=== PATIENT | female | born 1960 | race Caucasian/White ===

== ENCOUNTER 2021-06-19 08:22 | Emergency (ER) | payer OTHER, SELFPAY ==
--- NOTE | 2021-06-19 09:30 | ED.EAR ---
HPI - Ear Problem General Chief complaint: Ear Problems Stated complaint: ear pain Time Seen by Provider: 06/19/21 09:13 Source: patient Mode of arrival: ambulatory Limitations: language barrier (Citizen Of [place]-speaking) History of Present Illness MD Complaint: ear pain and other (And sore throat) Location: bilateral Duration: constant Severity: mild Relieving factors: nothing Exacerbating factors: nothing Discharge from ear: no Associated symptoms ear: other (Sore throat) Treatment prior to arrival: none Related Data Home Medications Medication Instructions Recorded Confirmed albuterol sulfate 90 mcg/actuation INHALATION 11/28/20 06/08/21 aerosol inhaler fluoxetine 20 mg capsule 20 mg PO DAILY 11/28/20 06/08/21 food supplemt, lactose-reduced ea PO 11/28/20 06/08/21 0.05 gram-1.5 kcal/mL oral liquid meclizine 25 mg tablet 25 mg PO TID PRN 11/28/20 06/08/21 multivitamin-ferrous 1 tab PO DAILY 11/28/20 06/08/21 fumarate-folic acid 18 mg-400 mcg tablet Previous Rx's Medication Instructions Recorded amlodipine 10 mg tablet 10 mg PO DAILY 90 Days #90 tab 06/08/21 aspirin 81 mg tablet,delayed 81 mg PO DAILY 90 Days #90 tab 06/08/21 release atorvastatin 40 mg tablet 40 mg PO DAILY 90 Days #90 tab 06/08/21 buspirone 10 mg tablet 10 mg PO BID 90 Days #180 tab 06/08/21 cetirizine 10 mg tablet 10 mg PO DAILY #30 tab 06/08/21 lisinopril 40 mg tablet 40 mg PO DAILY 90 Days #90 tab 06/08/21 acetaminophen 500 mg tablet 1,000 mg PO QID PRN #14 tab 06/19/21 (Tylenol Extra Strength) azithromycin 250 mg tablet See Rx Instructions .ROUTE 06/19/21 .COMPLEX #6 tab Allergies Allergy/AdvReac Type Severity Reaction Status Date / Time No Known Allergies Allergy Verified 06/08/21 14:00 Review of Systems Review of Systems: Constitutional : No Weight loss, No Fever, No Chills, No Night Sweats, No Fatigue, No Malaise ENT/Mouth : Positive sore throat/bilateral ear pain, No Hearing loss, No Nasal Congestion, No Sinus Pain, No Hoarseness, No Rhinorrhea, No Swallowing Difficulty Eyes: No Eye Pain, No Swelling, No Redness, No Foreign Body, No Discharge, No Vision Changes Cardiovascular : No Chest Pain, No SOB, No Dyspnea on Exertion, No Orthopnea, No Edema, No Palpitations Respiratory : No Cough, No Sputum, No Wheezing, No Smoke Exposure, No Dyspnea Gastrointestinal : No Nausea, No Vomiting, No Diarrhea, No Constipation, No abdominal Pain, No Hematochezia, No Melena Genitourinary : no irregular bleeding, No Dysuria, No Urinary Frequency, No Hematuria, No Urinary Incontinence, No Urgency, No Flank Pain, No Urinary Flow Changes, No Hesitancy Musculoskeletal : No joint pain, No Myalgias, No Joint Swelling Skin : No Skin Lesions, No rash Neuro : No Weakness, No Numbness, No Paresthesias, No Loss of Consciousness, No Dizziness, No Headache Psych : No Anxiety/Panic, No Depression, No SI/HI/AH/VH, No Social Issues, Heme/Lymph: No Bruising, No Bleeding,No Lymphadenopathy Endocrine : No Polyuria, No Polydipsia, No Temperature Intolerance Yes all other systems are reviewed and are negative [facility] Past Medical History Attestation statement: The following information was validated with the patient. Medical History Asthma High blood pressure History of high cholesterol Surgical History No pertinent past surgical history Social History Social History Housing: Apartment Alcohol intake: never Patient Tobacco Use Status: Never used Tobacco e-Cigarette/Vaping Use: Never Used Second Hand Smoke Exposure: No Advance Directives: No service: No Current occupational status: disabled Cognitive needs: No Hearing needs: No Vision needs: No Physical Exam Vital Signs: Vital Signs: vital signs have been reviewed as normal and appeared to be correct. Blood pressure normal. Heart rate normal. Respiration rate normal. Temperature normal. Oxygen saturation normal. Appearance: Alert. Oriented X3. No acute distress. Head: Normal external exam. Normocephalic. Atraumatic. Eyes: PERRLA. EOMI. Conjunctiva and sclera normal. Eyelids normal. ENT: EAC normal. TM's Normal. Posterior pharynx mildly erythematous with scattered exudate noted. Uvula midline. Moist mucous membranes. No trismus noted. No drooling noted. No muffled voice noted. Neck: Normal inspection. Neck supple. FROM. No adenopathy. Thyroid Normal. No meningeal signs. No neck mass noted. CVS: Normal heart rate and rhythm. Heart sound normal. Pulses normal throughout. No murmurs/rales/gallops. Respiratory: No respiratory distress. Painless inspiration. Breath sounds normal. No wheezes/rales/rhonchi noted. Chest nontender. No accessory muscle usage noted or decreased air movement noted. Abdomen: Soft and nontender. Bowel sounds normal in all 4 quadrants. No distention noted. No organomegaly noted. No visible injury noted. Back: Full range of motion noted. No rashes/lesion/induration/fluctuance or signs of infection noted. Skin: Skin warm and dry. Normal skin color. Normal skin turgor. No rashes/lesions/lacerations noted. Extremities: Extremities exhibit normal range of motion. Extremities nontender. Neuro: Oriented X 3. No motor deficit. No sensory deficit. Reflexes normal. Normal steady gait. No focal neuro deficits noted. Vascular: + radial pulses/+ 2 distal pedal pulses/+2 dorsalis pedis b/l. Normal cap refill. No cyanosis noted to upper extremity nails and lower extremity toes nails. Course Course Course Narrative: 61-year-old female presenting to the ED with complaints of 2 days of sore throat radiating to her bilateral ears worse today. Denies recent travel or sick contacts. On exam patient noted to have pharyngitis. Otherwise tolerating secretions well. Not consistent with pharyngeal abscess/dental abscess/peritonsillar abscess. No trismus/drooling. Will swab for COVID and strep and DC home with antibiotics for possible strep and call her in 2 hours if she has a positive results for COVID will not call if negative patient understands and agrees with this plan along with instructions to follow-up with her primary care provider and to return if any new or worsening symptoms. Patient understands agrees with this plan. [facility] - Ear Medical Records Attestation: I reviewed the patient's medical records. Lab Data Attestation: I reviewed the patient's lab results. Discharge Plan Discharge Clinical Impression: Pharyngitis Patient Disposition: Home, Self-Care Instructions: Pharyngitis (ED) Additional Instructions: Based on your symptoms and history we have sent a COVID-19. Although your RESULT IS PENDING at this time. RESULTS should return within 2-4 hours. At this time you will be contacted with ONLY POSITIVE results. -Please wait until we contact you for your results. At this time you will be okay for discharge. Please plan for self quarantine for up to 14 days. Do not expose yourself to others. You may not go to work. If testing does come back negative you may return to activities as long as you are no longer having any symptoms for at least 3 days. Please continue to follow cold instructions and wash your hands frequently. You may take Tylenol as directed on the bottle for pain or fever. Patient seen in the emergency department on -------- and should be excused from work until negative test results AND until 72 hours without any symptoms AND at least 10 days have passed since symptoms first appeared or since last exposure to COVID-19 positive patient CDC Guidelines for home isolation: - Stay away from others - WEAR A MASK if you are sick AND STAY HOME - Cover your mouth and nose with a tissue when you cough or sneeze. Dispose of tissues in a lined trash can and wash your hands immediately with soap and water for at least 20 seconds. If soap and water are not available, clean hands with alcohol-based hand diesel motor mechanic that contains at least 60% alcohol. - Clean your hands often with soap and water for at least 20 seconds - Avoid touching your eyes, nose and mouth with unwashed hands - Do not share dishes, drinking glasses, cups, eating utensils, towels, or bedding with other people in your home. After using these items, wash them thoroughly with soap and water or put in the president. - Clean high-touch surfaces in your isolation area ( sick room and bathroom) every day; let a caregiver clean and disinfect high-touch surfaces in other areas of the home. Clean the area or item with soap and water or another detergent if it is dirty. Then, use a household disinfectant. - Limit contact with pets and animals: If you must care for a pet, wash your hands before and after interacting with them). Prescriptions: New azithromycin 250 mg tablet See Rx Instructions .ROUTE .COMPLEX Qty: 6 RF: 0 acetaminophen [Tylenol Extra Strength] 500 mg tablet 1,000 mg PO QID PRN (Reason: fever or pain) Qty: 14 RF: 0 No Action Spectravite Ultra Women 18-400 mg-mcg tablet 1 tab PO DAILY RF: 0 albuterol sulfate 90 mcg/actuation HFA aerosol inhaler inhalation RF: 0 meclizine 25 mg tablet 25 mg PO TID PRNRF: 0 fluoxetine 20 mg capsule 20 mg PO DAILY RF: 0 food supplemt, lactose-reduced 0.05-1.5 gram-kcal/mL liquid PO RF: 0 buspirone 10 mg tablet 10 mg PO BID 90 Days Qty: 180 RF: 1 atorvastatin 40 mg tablet 40 mg PO DAILY 90 Days Qty: 90 RF: 3 aspirin 81 mg tablet,delayed release (DR/EC) 81 mg PO DAILY 90 Days Qty: 90 RF: 1 amlodipine 10 mg tablet 10 mg PO DAILY 90 Days Qty: 90 RF: 3 cetirizine 10 mg tablet 10 mg PO DAILY Qty: 30 RF: 3 lisinopril 40 mg tablet 40 mg PO DAILY 90 Days Qty: 90 RF: 3 Referrals: Vinita Sykes MD [Primary Care Provider] - 2 days Print Language: Citizen Of [place]
[2021-06-19 09:49] VITALS: BP 189/105; PULSE 100; RESP 18; TEMP 37.4; O2SAT 98; BMI 20.2
[2021-06-19 10:01] LABS: IDNOW Serial# 08D9AD1C; Strep A Nucleic Acid Negative (Negative)
[2021-06-19 10:04] LABS: COVID-19 Test Negative (Negative); IDNOW Serial# 9DD0AD1C
== END 2021-06-19 10:03 | disposition home or self-care (01) ==
PROVIDERS: Physician Assistant Medical; Emergency Provider Emergency Medicine; PCP Internal Medicine
DX: J02.9 Acute pharyngitis, unspecified (principal); Z20.822 Contact with and (suspected) exposure to COVID-19; H92.03 Otalgia, bilateral; I10 Essential (primary) hypertension; E78.00 Pure hypercholesterolemia, unspecified; Z79.82 Long term (current) use of aspirin; Z79.02 Long term (current) use of antithrombotics/antiplatelets
CPT/HCPCS: 36415; 87635; 87651; 99283

== ENCOUNTER 2021-07-12 12:50 | Outpatient (REF) | payer OTHER, SELFPAY ==
--- NOTE | ~2021-07-12 | US_ITS ---
EXAMINATION: ULTRASOUND SOFT TISSUE LIMITED, RIGHT CLINICAL INFORMATION: Right wrist lump COMPARISON: None TECHNIQUE: Limited sonographic evaluation of the superficial soft tissues of the right distal forearm and wrist assessing grayscale appearance and color Doppler flow. FINDINGS: Within separate superficial soft tissues of the lateral right wrist, there is a well-defined cystic fluid collection measuring 1.2 x 1.1 x 0.6 cm. No subcutaneous edema. US/US extremity nonvascular IMPRESSION: 1.2 cm cystic collection within the lateral right wrist may be a ganglion cyst or small neuroma. Consider MRI for further evaluation.
== END 2021-07-12 12:51 | disposition home or self-care (01) ==
LOC: HO.US 12:50
PROVIDERS: PCP Internal Medicine; Visit Provider Nurse Practitioner Family
DX: R22.31 Localized swelling, mass and lump, right upper limb (principal)
CPT/HCPCS: 76882

== ENCOUNTER 2021-08-03 13:26 | Outpatient (REF) | payer OTHER, SELFPAY ==
[2021-08-03 14:50] LABS: Anion Gap 13 (12-20); Blood Urea Nitrogen 14 mg/dL (9-16); Calcium 9.3 mg/dL (8.4-10.2); Carbon Dioxide 25 mmol/L (22-29); Chloride 108 mmol/L (96-108); Cholesterol 267 mg/dL; Estimated Glomerular Filt Rate > 60; Glucose Random 92 mg/dL (60-115); HDL Cholesterol 65 mg/dL; LDL Cholesterol Calculated 187 mg/dl; Potassium 4.1 mmol/L (3.3-5.1); Sodium 142 mmol/L (135-145); Triglycerides 79 mg/dL
== END 2021-08-03 13:27 | disposition home or self-care (01) ==
LOC: HO.MRI 13:26
PROVIDERS: PCP Internal Medicine; Visit Provider Nurse Practitioner Family
DX: R22.31 Localized swelling, mass and lump, right upper limb (principal); E78.5 Hyperlipidemia, unspecified; I10 Essential (primary) hypertension
CPT/HCPCS: 36415; 80048; 80061

== ENCOUNTER 2021-09-04 21:44 | Emergency (ER) | payer OTHER, SELFPAY ==
--- NOTE | ~2021-09-04 | CT_ITS ---
EXAMINATION: CT HEAD WITHOUT CONTRAST CLINICAL INFORMATION: Severe headache. Hypertension. COMPARISON: None. TECHNIQUE: Contiguous axial imaging was performed from the skull base to vertex without intravenous administration of contrast. Coronal and sagittal reformatted images are performed at the CT scanner. [This CT examination was performed using dose optimization techniques as appropriate, variously including the following: *Automated exposure control *Adjustment of mA and/or kV according to patient size (this includes techniques or standardized protocols for targeted exams where dose is matched to indication/reason for exam; i.e. extremities or head) *Use of iterative reconstruction technique] DLP: 544 mGy-cm. FINDINGS: There is no evidence of acute intracranial hemorrhage or territorial infarction. No abnormal mass-effect or midline shift is seen. [place] to white matter differentiation is well preserved. No extra-axial fluid collections are identified. The ventricles are normal in size. There is no abnormal attenuation within the brain parenchyma. There is no osseous abnormality. The mastoid air cells and visualized portions of the paranasal sinuses are well-aerated. CT/CT head/brain wo con IMPRESSION: No acute intracranial pathology.
[2021-09-04 21:52] VITALS: BP 228/113; PULSE 76; RESP 16; TEMP 36.6; O2SAT 98; BMI 20.2
--- NOTE | 2021-09-04 22:11 | ECG_ITS ---
Test Reason : Hypertension Blood Pressure : / mmHG Vent. Rate : 066 BPM Atrial Rate : 066 BPM P-R Int : 140 ms QRS Dur : 086 ms QT Int : 440 ms P-R-T Axes : 052 049 089 degrees QTc Int : 461 ms Normal sinus rhythm Minimal voltage criteria for LVH, may be normal variant ( Sokolow-Morrison ) Nonspecific ST and T wave abnormality Abnormal ECG No previous ECGs available Referred By: Laura Lopez Electronically Signed By:VISHNU WALDRON MD
--- NOTE | 2021-09-04 22:19 | ED.HA ---
HPI - Headache General Chief Complaint: Headache Stated Complaint: headache, dizziness Time Seen by Provider: 09/04/21 22:05 Source: patient Mode of arrival: ambulatory Limitations: no limitations History of Present Illness HPI Narrative: Patient comes to emergency room complaining of severe headache and lightheadedness. Patient states that her blood pressure has been elevated. Patient ran out of lisinopril and amlodipine approximately 1 week ago. Patient states she tried calling her primary care physician, but patient needed an office visit prior to refills. Patient states that she has a severe headache, denies visual changes, no chest pain, no shortness of breath, denies passing out. Patient tried taking Tylenol for the headache but did not help. On arrival to the emergency room, blood pressure 228/113 Related Data Home Medications Medication Instructions Recorded Confirmed fluoxetine 20 mg capsule 20 mg PO DAILY 11/28/20 06/20/21 food supplemt, lactose-reduced ea PO 11/28/20 06/20/21 0.05 gram-1.5 kcal/mL oral liquid meclizine 25 mg tablet 25 mg PO TID PRN 11/28/20 06/20/21 multivitamin-ferrous 1 tab PO DAILY 11/28/20 06/20/21 fumarate-folic acid 18 mg-400 mcg tablet Previous Rx's Medication Instructions Recorded buspirone 10 mg tablet 10 mg PO BID 90 Days #180 tab 06/08/21 cetirizine 10 mg tablet 10 mg PO DAILY #30 tab 06/08/21 acetaminophen 500 mg tablet 1,000 mg PO QID PRN #14 tab 06/19/21 (Tylenol Extra Strength) azithromycin 250 mg tablet See Rx Instructions .ROUTE 06/19/21 .COMPLEX #6 tab albuterol sulfate 90 mcg/actuation 2 inh INHALATION Q6H PRN 30 Days 08/31/21 aerosol inhaler #6.7 g amlodipine 10 mg tablet 10 mg PO DAILY 90 Days #90 tab 08/31/21 aspirin 81 mg tablet,delayed 81 mg PO DAILY 90 Days #90 tab 08/31/21 release atorvastatin 40 mg tablet 40 mg PO DAILY 90 Days #90 tab 08/31/21 lisinopril 40 mg tablet 40 mg PO DAILY 90 Days #90 tab 08/31/21 amlodipine 10 mg tablet 10 mg PO DAILY #30 tab 09/05/21 lisinopril 40 mg tablet 40 mg PO DAILY #30 tab 09/05/21 Allergies Allergy/AdvReac Type Severity Reaction Status Date / Time No Known Allergies Allergy Verified 09/04/21 21:59 Review of Systems Review of Systems: Constitutional : No Weight loss, No Fever, No Chills, No Night Sweats, No Fatigue, No Malaise ENT/Mouth : No Hearing loss, No Ear Pain, No Nasal Congestion, No Sinus Pain, No Hoarseness, No sore throat, No Rhinorrhea, No Swallowing Difficulty Eyes: No Eye Pain, No Swelling, No Redness, No Foreign Body, No Discharge, No Vision Changes Cardiovascular : No Chest Pain, No SOB, No Dyspnea on Exertion, No Orthopnea, No Edema, No Palpitations, complaining of high blood pressure Respiratory : No Cough, No Sputum, No Wheezing, No Smoke Exposure, No Dyspnea Gastrointestinal : No Nausea, No Vomiting, No Diarrhea, No Constipation, No abdominal Pain, No Hematochezia, No Melena Genitourinary : no irregular bleeding, No Dysuria, No Urinary Frequency, No Hematuria, No Urinary Incontinence, No Urgency, No Flank Pain, No Urinary Flow Changes, No Hesitancy Musculoskeletal : No joint pain, No Myalgias, No Joint Swelling Skin : No Skin Lesions, No rash Neuro : No Weakness, No Numbness, No Paresthesias, No Loss of Consciousness, No Dizziness, complaining of severe headache Psych : No Anxiety/Panic, No Depression, No SI/HI/AH/VH, No Social Issues, Heme/Lymph: No Bruising, No Bleeding,No Lymphadenopathy Endocrine : No Polyuria, No Polydipsia, No Temperature Intolerance [facility] Past Medical History Medical History Asthma Essential hypertension Pure hypercholesterolemia URI (upper respiratory infection) Surgical History No pertinent past surgical history Social History Social History Housing: Apartment Alcohol intake: never Patient Tobacco Use Status: Never used Tobacco e-Cigarette/Vaping Use: Never Used Second Hand Smoke Exposure: No Advance Directives: No Advance Directives Information Provided: Yes service: No Current occupational status: disabled Cognitive needs: No Hearing needs: No Vision needs: No Physical Exam Vital Signs: Vital Signs: Last Vital Signs Temp 98.1 F 09/04/21 23:46 Pulse 76 09/04/21 23:46 Resp 18 09/04/21 23:46 BP 179/93 H 09/04/21 23:46 Pulse Ox 95 09/04/21 23:46 BMI result Body Mass Index 20.2 Const: Other: Appearance: Alert. Oriented X3. No acute distress. Eyes: Pupils equal, round and reactive to light. ENT: Pharynx normal. Neck: Normal inspection. Neck supple. No lymph nodes noted. No crepitus CVS: Normal heart rate and rhythm. Pulses normal. Normal S1 and S2, repeat blood pressure 226/116 Respiratory: No respiratory distress. Breath sounds normal. No Wheezing. No rales Abdomen: Soft and nontender. No rigidity. No distention. good BS x4 Skin: Skin warm and dry. Normal skin color. Normal skin turgor. Extremities: No lower extremity edema. No Lacerations. No Rash Neuro: Oriented X 3. No motor deficit. No sensory deficit. Moving all extermities. No slurred speech. Course Course Course Narrative: Head CT, labs and EKG pending. Patient is receiving now a dose of p.o. labetalol 100 mg, and IV 2 mg morphine for headache Blood pressure 179/93, 1st EKG show now [address] segment elevation in V1, no previous EKGs for comparison. An EKG was taken 1 hour after, no EKG changes. Patient continues feeling better, patient never had chest pain. Troponin 1. Negative Patient received a total of 200 mg of p.o. labetalol, nitropaste. Blood pressure 174/60. Patient states that she feels completely back to her baseline, patient has no headache at all, patient will hand picker her medications tomorrow at her pharmacy, patient's blood pressure was reduced approximately 25% MDM - Headache Lab Data Result diagrams: 09/04/21 22:23 09/04/21 22:23 Labs: Lab Results 09/04/21 09/04/21 09/04/21 Range/Units 22:23 22:23 22:23 WBC 8.2 (4.8-10.8) X10*3/uL RBC 4.12 L (4.20-5.50) X10*6/uL Hgb 11.9 L (12.0-16.0) g/dl Hct 37.9 (37.0-47.0) % MCV 92.0 (80.0-98.0) fL MCH 28.9 (27.0-33.0) pg MCHC 31.4 (31.0-35.0) g/dl RDW 12.2 (11.0-16.0) % Plt Count 286 (160-400) X10*3/uL MPV 10.1 (9.4-12.3) fL Immature Gran % (Auto) 0.1 (0.0-0.4) % Neut % (Auto) 55.1 (45-73) % Lymph % (Auto) 33.8 (20-40) % [place] % (Auto) 7.7 (2-11) % Eos % (Auto) 2.4 (0-4) % Baso % (Auto) 0.9 (0-2) % Lymph # (Auto) 2.8 (1.2-4.9) X10*3/uL [place] # (Auto) 0.6 (0.1-1.2) X10*3/uL Eos # (Auto) 0.2 (0.0-0.4) X10*3/uL Baso # (Auto) 0.1 (0.0-0.2) X10*3/uL Abs Immat Gran (auto) 0.01 (0.00-0.03) X10*3/uL Absolute Neuts (auto) 4.5 (2.0-8.3) x10*3/uL Absolute Nucleated RBC 0.000 (0.0-0.012) X10*3/uL Nucleated RBC % (auto) 0.0 (0.0-0.2) /100WBC Sodium 144 (135-145) mmol/L Potassium 5.1 D (3.3-5.1) mmol/L Chloride 108 (96-108) mmol/L Carbon Dioxide 29 (22-29) mmol/L Anion Gap 12 (12-20) BUN 17 H (9-16) mg/dL Creatinine 0.82 (0.5-1.4) mg/dL Estim Creat Clear Calc 50.3 Estimated GFR > 60 Random Glucose 98 (60-115) mg/dL Calcium 9.4 (8.4-10.2) mg/dL Troponin I High Sens < 3.5 (<3.5-17.0) ng/L Imaging Data CT scan - head: Radiologist's impression: There is no evidence of acute intracranial hemorrhage or territorial infarction. No abnormal mass-effect or midline shift is seen. [place] to white matter differentiation is well preserved. No extra-axial fluid collections are identified. The ventricles are normal in size. There is no abnormal attenuation within the brain parenchyma. There is no osseous abnormality. The mastoid air cells and visualized portions of the paranasal sinuses are well-aerated. ? CT/CT head/brain wo con IMPRESSION: No acute intracranial pathology. Discharge Plan Discharge Clinical Impression: Hypertensive urgency Patient Disposition: Home, Self-Care Instructions: Hypertension (ED) Additional Instructions: Please follow-up with your primary care physician tomorrow. If you have any worsening or new symptoms, please return to the emergency room or call 911 Prescriptions: New amlodipine 10 mg tablet 10 mg PO DAILY Qty: 30 2RF lisinopril 40 mg tablet 40 mg PO DAILY Qty: 30 2RF No Action albuterol sulfate 90 mcg/actuation HFA aerosol inhaler 2 inh inhalation Q6H PRN (Reason: bronchospasm) 30 Days Qty: 6.7 1RF amlodipine 10 mg tablet 10 mg PO DAILY 90 Days Qty: 90 3RF aspirin 81 mg tablet,delayed release (DR/EC) 81 mg PO DAILY 90 Days Qty: 90 1RF atorvastatin 40 mg tablet 40 mg PO DAILY 90 Days Qty: 90 3RF lisinopril 40 mg tablet 40 mg PO DAILY 90 Days Qty: 90 3RF azithromycin 250 mg tablet See Rx Instructions .ROUTE .COMPLEX Qty: 6 0RF Rx Instructions: take 500 mg today (day 1), then 250 mg for 4 days (days 2-5) acetaminophen [Tylenol Extra Strength] 500 mg tablet 1,000 mg PO QID PRN (Reason: fever or pain) Qty: 14 0RF Spectravite Ultra Women 18-400 mg-mcg tablet 1 tab PO DAILY 0RF meclizine 25 mg tablet 25 mg PO TID PRN0RF fluoxetine 20 mg capsule 20 mg PO DAILY 0RF food supplemt, lactose-reduced 0.05-1.5 gram-kcal/mL liquid PO 0RF buspirone 10 mg tablet 10 mg PO BID 90 Days Qty: 180 1RF cetirizine 10 mg tablet 10 mg PO DAILY Qty: 30 3RF
[2021-09-04 22:27] LABS: MANUAL DIFF FLAG NO
[2021-09-04 22:28] VITALS: BP 229/119; PULSE 74; RESP 16; TEMP 37.1; O2SAT 98
[2021-09-04 22:28] LABS: Basophils Absolute Auto 0.1 X10*3/uL (0.0-0.2); Basophils Percent Auto 0.9 % (0-2); Eosinophils Absolute Auto 0.2 X10*3/uL (0.0-0.4); Eosinophils Percent Auto 2.4 % (0-4); Hematocrit 37.9 % (37.0-47.0); Hemoglobin 11.9 g/dl (12.0-16.0); Imm Gran Abs Auto 0.01 X10*3/uL (0.00-0.03); Imm Gran Pct Auto 0.1 % (0.0-0.4); Lymphocytes Absolute Auto 2.8 X10*3/uL (1.2-4.9); Lymphocytes Percent Auto 33.8 % (20-40); Mean Corpuscular HGB Conc 31.4 g/dl (31.0-35.0); Mean Corpuscular Hemoglobin 28.9 pg (27.0-33.0); Mean Platelet Volume 10.1 fL (9.4-12.3); Monocytes Absolute Auto 0.6 X10*3/uL (0.1-1.2); Monocytes Percent Auto 7.7 % (2-11); Neutrophils Absolute Auto 4.5 x10*3/uL (2.0-8.3); Neutrophils Percent Auto 55.1 % (45-73); Platelet Count 286 X10*3/uL (160-400); Red Blood Count 4.12 X10*6/uL (4.20-5.50); Red Cell Distribution Width 12.2 % (11.0-16.0); White Blood Count 8.2 X10*3/uL (4.8-10.8)
[2021-09-04] MEDS: Morphine Sulfate 2 MG/ML CARTRIDGE IVPUSH (22:32)
[2021-09-04] MEDS: Labetalol HCL 100 MG TABLET PO ×2 (22:33→23:41)
[2021-09-04] MEDS: ondansetron HCL 4 MG/2 ML VIAL IVPUSH (22:33)
[2021-09-04 22:38] VITALS: BP 224/119
[2021-09-04 22:45] LABS: Anion Gap 12 (12-20); Blood Urea Nitrogen 17 mg/dL (9-16); Calcium 9.4 mg/dL (8.4-10.2); Carbon Dioxide 29 mmol/L (22-29); Chloride 108 mmol/L (96-108); Creatinine Clr Calc Pharmacy 50.3; Estimated Glomerular Filt Rate > 60; Glucose Random 98 mg/dL (60-115); Potassium 5.1 mmol/L (3.3-5.1); Sodium 144 mmol/L (135-145)
[2021-09-04 22:51] LABS: Troponin-I High Sensitivity < 3.5 ng/L (<3.5-17.0)
--- NOTE | 2021-09-04 23:18 | ECG_ITS ---
Test Reason : HEADACHE Blood Pressure : / mmHG Vent. Rate : 060 BPM Atrial Rate : 060 BPM P-R Int : 144 ms QRS Dur : 086 ms QT Int : 468 ms P-R-T Axes : 058 055 090 degrees QTc Int : 468 ms Normal sinus rhythm Minimal voltage criteria for LVH, may be normal variant ( Sokolow-Morrison ) Borderline ECG When compared with ECG of 04-SEP-2021 22:21, No significant change was found Referred By: Laura Lopez Electronically Signed By:VISHNU WALDRON MD
[2021-09-04] MEDS: Nitroglycerin 2 % Oint 1 GM Packet 1 INCH TRANSDERMA (23:41)
[2021-09-04 23:46] VITALS: BP 179/93; PULSE 76; RESP 18; TEMP 36.7; O2SAT 95
[2021-09-05] MEDS: lisinopriL 40 MG TABLET PO (01:12)
[2021-09-05] MEDS: amLODIPine Besylate 10 MG TABLET PO (01:13)
--- NOTE | 2021-09-05 01:18 | PC.NURSE ---
iv removed intact. pt verbalized u/s of d/c instructions and left ed ambulatory with steady even gait to for ride home with daughter.
== END 2021-09-05 01:20 | disposition home or self-care (01) ==
PROVIDERS: Emergency Provider Emergency Medicine; PCP Internal Medicine
DX: I16.0 Hypertensive urgency (principal); R51.9 Headache, unspecified
CPT/HCPCS: 36415; 70450; 80048; 84484; 85025; 93005; 96374; 96375; 99284; J2270; J2405

== ENCOUNTER 2022-08-13 09:29 | Emergency (ER) | payer OTHER, SELFPAY ==
[2022-08-13 09:34] VITALS: BP 225/110; PULSE 84; RESP 16; TEMP 36.9; O2SAT 98; BMI 19.1
--- NOTE | 2022-08-13 10:31 | ED_ITS ---
HPI - URI/Sore Throat General Chief Complaint: Ear Problems Stated Complaint: Ear pain/Fever Time Seen by Provider: 08/13/22 09:43 Source: patient Mode of arrival: ambulatory Limitations: language barrier ( Vietnamese-speaking) History of Present Illness HPI Narrative: 62-year-old female who is Vietnamese-speaking with a past medical history of hypertension, hyperlipidemia, general anxiety disorder was presenting to the ER with URI complaints that started yesterday which include generalized fatigue /malaise, chills, subjective fevers, nasal congestion / rhinorrhea, ear pain, sore throat and a dry cough. Denies recent travel or sick contacts that she is aware of. Denies any measured fevers, dizziness, headaches, neck pain / stiffness, trouble swallowing or breathing, chest pain or shortness of breath, rashes dyspnea on exertion, orthopnea, palpitations, paresthesias, nausea /vomiting / diarrhea constipation, black or bloody stools, abdominal pain, flank pain, dysuria, hematuria, abnormal vaginal discharge or any other symptoms complaints or concerns at this time. MD elicited complaint: fever, cough, sore throat, rhinorrhea and nasal congestion Onset (ago): day(s) (2) Consistency: constant Severity: mild Description of mucous: clear, watery and yellow Able to tolerate fluids by mouth: Yes Exacerbating factors: swallowing Relieving factors: nothing Associated symptoms: fever, chills, myalgias, rhinorrhea, nasal congestion, sore throat, cough and ear pain Treatments prior to arrival: none Related Data Home Medications Medication Instructions Recorded Confirmed fluoxetine 20 mg capsule 20 mg PO DAILY 11/28/20 07/24/22 Previous Rx's Medication Instructions Recorded cetirizine 10 mg tablet 10 mg PO DAILY #30 tabs 01/30/22 acetaminophen 500 mg tablet 1,000 mg PO QID PRN fever or pain 05/28/22 (Tylenol Extra Strength) 30 days #120 tabs albuterol sulfate 90 mcg/actuation 2 inh inhalation Q6H PRN 05/28/22 aerosol inhaler bronchospasm 30 days #8.5 grams amlodipine 10 mg tablet 10 mg PO DAILY 90 days #90 tabs 05/28/22 aspirin 81 mg tablet,delayed 81 mg PO DAILY 90 days #90 tabs 05/28/22 release atorvastatin 40 mg tablet 40 mg PO DAILY 90 days #90 tabs 05/28/22 buspirone 10 mg tablet 10 mg PO BID 90 days #180 tabs 05/28/22 lisinopril 40 mg tablet 40 mg PO DAILY 90 days #90 tabs 05/28/22 meclizine 25 mg tablet 25 mg PO TID PRN dizziness 30 days 05/28/22 #90 tabs multivitamin-ferrous 1 tab PO DAILY 90 days #90 tabs 05/28/22 fumarate-folic acid 18 mg-400 mcg tablet Allergies Allergy/AdvReac Type Severity Reaction Status Date / Time No Known Allergies Allergy Verified 07/24/22 13:31 [No Known Allergies*] Review of Systems Review of Systems: Constitutional : + Subjective fevers/ chills/fatigue /malaise, No Weight loss, No Night Sweats ENT/Mouth : + nasal congestion/ rhinorrhea/ sore throat /ear pain, No Hearing loss, No Sinus Pain, No Hoarseness, No Swallowing Difficulty Eyes: No Eye Pain, No Swelling, No Redness, No Foreign Body, No Discharge, No Vision Changes Cardiovascular : No Chest Pain, No SOB, No Dyspnea on Exertion, No Orthopnea, No Edema, No Palpitations Respiratory : + Cough, No Sputum, No Wheezing, No Smoke Exposure, No Dyspnea Gastrointestinal : No Nausea, No Vomiting, No Diarrhea, No Constipation, No abdominal Pain, No Hematochezia, No Melena Genitourinary : no irregular bleeding, No Dysuria, No Urinary Frequency, No Hematuria, No Urinary Incontinence, No Urgency, No Flank Pain, No Urinary Flow Changes, No Hesitancy Musculoskeletal : No joint pain, + Myalgias, No Joint Swelling Skin : No Skin Lesions, No rash Neuro : No Weakness, No Numbness, No Paresthesias, No Loss of Consciousness, No Dizziness, No Headache Psych : No Anxiety/Panic, No Depression, No SI/HI/AH/VH, No Social Issues, Heme/Lymph: No Bruising, No Bleeding,No Lymphadenopathy Endocrine : No Polyuria, No Polydipsia, No Temperature Intolerance Yes all other systems are reviewed and are negative [facility] Past Medical History Attestation statement: The following information was validated with the patient. Source: old records reviewed and nursing notes reviewed Medical History Asthma Essential hypertension Pure hypercholesterolemia URI (upper respiratory infection) Surgical History No pertinent past surgical history Family History Family History Mother Essential hypertension Pure hypercholesterolemia Social History Social History Housing: Apartment Alcohol intake: never Patient Tobacco Use Status: Never used Tobacco Smoked in Last 30 Days: No e-Cigarette/Vaping Use: Never Used Second Hand Smoke Exposure: No Advance Directives: No Advance Directives Information Provided: No Patient : No service: No Current occupational status: disabled Cognitive needs: No Hearing needs: No Vision needs: Yes Physical Exam Vital Signs: Vital Signs: Last Vital Signs Temp 98.5 F 08/13/22 09:34 Pulse 84 08/13/22 09:34 Resp 16 08/13/22 09:34 BP 225/110 H 08/13/22 09:34 Pulse Ox 98 08/13/22 09:34 O2 Del Method 08/13/22 09:34 BMI result Body Mass Index 19.1 Vital signs reviewed. Blood pressure 225/110. Pulse normal. Respiration normal. Oxygen normal. Temperature normal. Appearance: Alert. Oriented X3. No acute distress. Head: Normal external exam. Normocephalic. Atraumatic. Eyes: PERRLA. EOMI. Conjunctiva and sclera normal. Eyelids normal. ENT: EAC normal. TM's Normal. Pharynx normal. Uvula midline. Moist mucous membranes. No lesions/ulcerations or masses noted on the tongue. Normal voice. No trismus noted. No drooling noted. No muffled voice noted. Neck: Normal inspection. Neck supple. FROM. No adenopathy. Thyroid Normal. No meningeal signs. CVS: Normal heart rate and rhythm. Heart sound normal. Pulses normal throughout. No murmurs/rales/gallops. Respiratory: No respiratory distress. Painless inspiration. Breath sounds normal. No wheezes/rales/rhonchi noted. Chest nontender. No accessory muscle usage noted or decreased air movement noted. Abdomen: Soft and nontender. Back: Full range of motion noted. Nontender. Skin: Skin warm and dry. Normal skin color. Normal skin turgor. No rashes/lesions/lacerations noted. Extremities: Extremities exhibit normal range of motion and nontender. no lower extremity edema or calf tenderness is noted. Neuro: Oriented X 3. No motor deficit. No sensory deficit. Reflexes normal. Normal steady gait. No focal neuro deficits noted. CN's II-XII intact bilaterally? Vascular: + radial pulses. Normal cap refill. No cyanosis noted to upper extremity nails Course Course Course Narrative: Ass: Viral syndrome.? Pt looks well, not dehydrated.? Breathing easily.? afebrile. Patient noted to have an elevated blood pressure although reports that this normally happens when she comes to the hospital and she is not feeling well she forgot to take her blood pressure therefore will give her a 40 mg of lisinopril and her 10 mg amlodipine. Otherwise all other vitals are within normal limits. She denies any cardiac related complaints. Normal oxygen level. Lungs CTA. CV RRR. Neck is soft nontender supple with full range of motion no meningeal signs are noted. Posterior pharynx no erythema or exudate noted. Uvula midline. No trismus /drooling/ stridor. Patient tolerating secretions well. Moist mucous membranes are noted. Will obtain COVID/RSV/ flu and rapid strep otherwise no additional Labs/ iv fluids not indicated. Imaging not indicated. Not c/w pneumonia, otitis media, otitis externa, mastoiditis, peritonsillar abscess, pharyngeal abscess, dental abscess, gingival abscess. Not consistent with UTI / ptx/ pericarditis / mediastinitis / meningitis.? if swabs are negative patient will be discharged with viral syndrome and symptomatic treatment instructions return if any new or worsening symptoms follow up with her primary care provider for further evaluation treatment. Patient understands agrees with this plan. Medications Administered Discontinued Medications Generic Name Dose Route Start Last Admin Trade Name Freq PRN Reason Stop Dose Admin Lisinopril 40 mg 08/13/22 11:16 08/13/22 11:25 Lisinopril 40 Mg Tablet PO 08/13/22 11:17 40 mg ONCE ONE Administration Protocol Medical Decision Making Lab Data MDM Lab Attestation statement: I reviewed the patient's lab results. Labs: Lab Results 08/13/22 08/13/22 Range/Units 10:05 10:05 Influenza Type A (PCR) NEGATIVE (Negative) Influenza Type B (PCR) NEGATIVE (Negative) RSV RNA Qual (PCR) NEGATIVE (Negative) SARS-CoV-2 RNA (RT-PCR) NEGATIVE (Negative) S. pyogenes GrpA THERESA Negative (Negative) Discharge Plan Discharge Clinical Impression: Acute viral syndrome, High blood pressure Patient Disposition: Home, Self-Care Instructions: Viral Syndrome (ED) Prescriptions: No Action cetirizine 10 mg tablet 10 mg PO DAILY Qty: 30 3RF acetaminophen [Tylenol Extra Strength] 500 mg tablet 1,000 mg PO QID PRN (Reason: fever or pain) 30 Days Qty: 120 1RF albuterol sulfate 90 mcg/actuation HFA aerosol inhaler 2 inh inhalation Q6H PRN (Reason: bronchospasm) 30 Days Qty: 8.5 1RF amlodipine 10 mg tablet 10 mg PO DAILY 90 Days Qty: 90 3RF aspirin 81 mg tablet,delayed release (DR/EC) 81 mg PO DAILY 90 Days Qty: 90 1RF atorvastatin 40 mg tablet 40 mg PO DAILY 90 Days Qty: 90 3RF buspirone 10 mg tablet 10 mg PO BID 90 Days Qty: 180 1RF lisinopril 40 mg tablet 40 mg PO DAILY 90 Days Qty: 90 3RF feilxmrixtya-yzyj-qpswr acid 18-400 mg-mcg tablet 1 tab PO DAILY 90 Days Qty: 90 1RF meclizine 25 mg tablet 25 mg PO TID PRN (Reason: dizziness) 30 Days Qty: 90 1RF fluoxetine 20 mg capsule 20 mg PO DAILY Referrals: Vinita Sykes MD [Primary Care Provider] - 2 days Print Language: Vietnamese
[2022-08-13 10:34] LABS: IDNOW Serial# 6674DD1D; Strep A Nucleic Acid Negative (Negative)
[2022-08-13 11:10] VITALS: BP 226/110
[2022-08-13 11:17] LABS: Influenza A PCR NEGATIVE (Negative); Influenza B PCR NEGATIVE (Negative); Resp Syncy Virus RNA Qual PCR NEGATIVE (Negative); SARS COV2 PCR INHOUSE NEGATIVE (Negative)
[2022-08-13] MEDS: lisinopriL 40 MG TABLET PO (11:25)
[2022-08-13] MEDS: amLODIPine Besylate 10 MG TABLET PO (11:32)
== END 2022-08-13 11:38 | disposition home or self-care (01) ==
PROVIDERS: Physician Assistant Medical; Emergency Provider Emergency Medicine; PCP Internal Medicine
DX: B34.9 Viral infection, unspecified (principal); H92.03 Otalgia, bilateral; I10 Essential (primary) hypertension; Z20.822 Contact with and (suspected) exposure to COVID-19; Z20.828 Contact with and (suspected) exposure to other viral communicable diseases
CPT/HCPCS: 0241U; 87651; 99283; 99284

== ENCOUNTER 2022-12-20 13:31 | Outpatient (REF) | payer OTHER, SELFPAY ==
--- NOTE | ~2022-12-20 | MM_ITS ---
EXAMINATION: MM SCREENING DIGITAL BREAST TOMOSYNTHESIS, BILATERAL CLINICAL INFORMATION: Screening. Asymptomatic. The lifetime risk of breast cancer based on the Tyrer-Cuzick Model is 5%. COMPARISON: Mammography: 07/09/2018, 06/25/2017, 06/20/2016 TECHNIQUE: Digital breast tomosynthesis is performed in both the craniocaudal and mediolateral oblique views along with computer-aided detection (CAD). Synthesized 2D images are generated from the tomosynthesis. FINDINGS: There are scattered areas of fibroglandular density (ACR BI-RADS breast composition Category b). There are no significant masses, abnormal calcifications, or other abnormalities. Parenchymal pattern is similar to prior studies. Small nodular asymmetric density mid medial left breast on CC view is stable from prior exams. No developing density. No architectural abnormality. Scattered bilateral vascular calcifications again seen. The axilla and skin contours are unremarkable. MM/MM tomosynthesis screening BI IMPRESSION: No mammographic evidence of malignancy. ASSESSMENT: BI-RADS 2: Benign RECOMMENDATION: Routine annual mammography screening. This patient's information was entered into a reminder system with a target due date for their next mammogram.
--- NOTE | ~2022-12-20 | MM_ITS ---
EXAMINATION: BONE DENSITOMETRY CLINICAL INDICATION: Unspecified menopausal and perimenopausal disorder. COMPARISON: Baseline BD dated 06/20/2016. TECHNIQUE: Using a [employer] DXA System (software version: 13.1) manufactured by [employer], dual-energy x-ray absorptiometry was performed of the lumbar spine and left hip. The images are of good technical quality. Summary results are attached. FINDINGS: AP SPINE L1-L4: Current: BMD 0.874 g/cm2, Z-score -0.6, T-score -2.5, osteoporosis, 0.1% increase from baseline (<5% change is not significant). Baseline: BMD 0.873 g/cm2. LEFT FEMUR, NECK: Current: BMD 0.792 g/cm2, Z-score 0.0, T-score -1.8, osteopenia. Baseline: BMD 0.837 g/cm2. LEFT FEMUR, TOTAL: Current: BMD 0.842 g/cm2, Z-score 0.2, T-score -1.3, osteopenia, 0.4% increase from baseline (<5% change is not significant). Baseline: BMD 0.839 g/cm2. IDENTIFIED RISK FACTORS: Low body weight, menopause. HISTORY OF FRACTURE: None listed. MEDICATIONS: Calcium supplements or multivitamin, vitamin D. MM/XR DEXA axial skeleton IMPRESSION: 1. DIAGNOSIS: Osteoporosis based on the lowest T-score value of -2.5 in the lumbar spine applying World Health Organization criteria. 2. 10-YEAR FRACTURE RISK PREDICTION, FRAX: According to the guidelines, FRAX calculation should only be performed on patients in the osteopenia bone density category. Therefore, FRAX was not performed on this patient. 3. Treatment Recommendations: NOF guidelines recommend consideration for treatment in postmenopausal women and men age 50 and older presenting with the following: -A hip or vertebral (clinical or morphometric) fracture. -T-score less than or equal to -2.5 at the femoral neck or spine after appropriate evaluation to exclude secondary causes. -Low bone mass at the hip or spine and a 10-year fracture probability by FRAX of greater than or equal to 3% for hip fracture or greater than or equal to 20% for major osteoporotic fracture based on the [place] adapted WHO algorithm. 4. Other Recommendations: All treatment decisions require clinical judgment and consideration of individual patient factors, including patient preferences, comorbidities, previous drug use, risk factors not captured in the FRAX model (e.g. frailty, falls, vitamin D deficiency, increased bone turnover, interval significant decline in bone density) and possible under or overestimation of fracture risk by FRAX. Additional medical evaluation for secondary cause of low bone mineral density may be appropriate. FUTURE SCAN RECOMMENDATION: People with diagnosed cases of osteoporosis or at high risk for fracture should have regular bone mineral density tests. For patients eligible for Medicare, routine testing is allowed once every 2 years. The testing frequency can be increased to one year for patients who have rapidly progressing disease, those who are receiving or discontinuing medical therapy to restore bone mass, or have additional risk factors.
== END 2022-12-20 13:32 | disposition home or self-care (01) ==
LOC: HO.MAMMO 13:31
PROVIDERS: PCP Internal Medicine; Visit Provider Internal Medicine
DX: Z12.31 Encounter for screening mammogram for malignant neoplasm of breast (principal); Z13.820 Encounter for screening for osteoporosis; Z78.0 Asymptomatic menopausal state
CPT/HCPCS: 77063; 77067; 77080

== ENCOUNTER 2023-03-21 10:32 | Outpatient (AMB) | payer OTHER, SELFPAY ==
[2023-03-21 10:33] VITALS: BP 162/96; PULSE 68; BMI 19.7
--- NOTE | 2023-03-21 10:33 | A.OFFVIS_ITS ---
Intake Vital Signs 03/21/23 10:33 Height 4 ft 11 in Weight 97 lb 10.636 oz BMI 19.7 BP 162/96 H Blood Pressure Location Lt brachial Position Sitting Pulse 68 Pulse Source Pulse Oximeter Intake Visit Reasons: Age-related osteoporosis/no mailbox Intake Note: New patient present for Age-related Osteoporosis. 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 Accompanied by: Self / Same As Patient Allergies No Known Allergies [No Known Allergies*] Allergy (Verified 03/21/23 10:40) Medication List - Last Reconciled 03/21/23 by Kamari Beatty MD acetaminophen (Tylenol Extra Strength) 1,000 mg (2 x 500 mg) PO QID PRN 30 days amlodipine 10 mg PO DAILY 90 days aspirin 81 mg PO DAILY 90 days atorvastatin 40 mg PO DAILY 90 days buspirone 10 mg PO BID 90 days cetirizine 10 mg PO DAILY chlorthalidone 25 mg PO DAILY 90 days cholecalciferol (vitamin D3) 50 mcg PO DAILY fluoxetine 20 mg PO DAILY 90 days food supplemt, lactose-reduced (Ensure oral liquid) 1 ea PO DAILY 24 days lisinopril 40 mg PO DAILY 90 days meclizine 25 mg PO TID PRN 30 days vqapenqiqlek-bpqs-jbkzi acid 18-400 mg-mcg 1 tab PO DAILY 90 days Ventolin HFA 90 mcg/actuation (albuterol sulfate) 2 puffs inhalation Q6H PRN 30 days NS HPI HPI Comments History of Present Illness Details 62 YO Female with is seen in consultation at the request of PCP for Osteoporosis. First diagnosed in last mo . Not Received treatment in the past No history of pathologic fracture or ONJ. Has very few servings of dietary calcium per day in the form of yogurt . Not Takes Calcium supplement . Takes ? IU of Vitamin D daily. Denies ever using PPI, anticoagulant, antiepileptic or glucocorticoid medication. 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 UTD on dental cleanings and sees dentist every 6 months. Adentulous No hot flashes . No family hx of breast Ca DXA dated : 12/20/2022 FINDINGS: AP SPINE L1-L4: Current: BMD 0.874 g/cm2, Z-score -0.6, T-score -2.5, osteoporosis, 0.1% increase from baseline (<5% change is not significant). Baseline: BMD 0.873 g/cm2. LEFT FEMUR, NECK: Current: BMD 0.792 g/cm2, Z-score 0.0, T-score -1.8, osteopenia. Baseline: BMD 0.837 g/cm2. LEFT FEMUR, TOTAL: Current: BMD 0.842 g/cm2, Z-score 0.2, T-score -1.3, osteopenia, 0.4% increase from baseline (<5% change is not significant). Baseline: BMD 0.839 g/cm2. IDENTIFIED RISK FACTORS: Low body weight, menopause. HISTORY OF FRACTURE: None listed. MEDICATIONS: Calcium supplements or multivitamin, vitamin D. MM/XR DEXA axial skeleton IMPRESSION: 1. DIAGNOSIS: Osteoporosis based on the lowest T-score value of -2.5 in the lumbar spine applying World Health Organization criteria.? ? Labs: [facility] Medical History Asthma Essential hypertension Pure hypercholesterolemia URI (upper respiratory infection) Surgical History No pertinent past surgical history Family History Mother Essential hypertension Pure hypercholesterolemia Social History Housing: Apartment Alcohol intake: never Patient Tobacco Use Status: Never used Tobacco e-Cigarette/Vaping Use: Never Used Second Hand Smoke Exposure: No service: No Current occupational status: disabled Cognitive needs: No Hearing needs: No Vision needs: Yes Physical Exam Vital Signs: Last Vital Signs Pulse 68 03/21/23 10:33 BP 162/96 H 03/21/23 10:33 BMI result Body Mass Index 19.7 There are no Cushingoid features. Absence of blue sclera. Absence of kyphosis. Thyroid gland is of nl size and weighs 15 gms. There are no thyroid nodules palpated. Lungs CTA. Heart S1 S2 Reg R/R Abdominal exam benign. Muscle strength 5/5 . Examination of spine reveals absence of tenderness on palpation Assessment & Plan Assessment & Plan (1) Osteoporosis: Code(s): M81.0 - Age-related osteoporosis without current pathological fracture Plan: This 62-year-old female with history of osteoporosis. Rule out secondary causes. Plan is check a phosphorus, 24 hour urine for calcium and creatinine, SPEP, urine immunofixation, 25 hydroxy vitamin-D level. Will ensure 1200 mg of calcium through diet and supplement and 2000 IU of vitamin D3. Depending upon secondary workup could consider pharmacologic treatment or observation Orders: Orders Phosphorus Today M81.0 - Age-related osteoporosis without current pathological fracture Calcium, 24 Hr Ur Today M81.0 - Age-related osteoporosis without current pathological fracture Creatinine, 24 Hr Group Today M81.0 - Age-related osteoporosis without current pathological fracture Immunofixation, Random Urine Today M81.0 - Age-related osteoporosis without current pathological fracture Protein Electrophoresis, Serum Today M81.0 - Age-related osteoporosis without current pathological fracture Vitamin D 25-OH Total Today E55.9 - Vitamin D deficiency, unspecified Medications: New cholecalciferol (vitamin D3) 50 mcg PO DAILY 30 caps 5RF Coding Level of Care Code New Pt Level 4 (87984) Diagnoses Osteoporosis M81.0
== END 2023-03-21 11:07 | disposition home or self-care (01) ==
PROVIDERS: PCP Internal Medicine; Visit Provider Internal Medicine Endocrinology, Diabetes & Metabolism
DX: M81.0 Age-related osteoporosis without current pathological fracture (principal)
CPT/HCPCS: 99204

== ENCOUNTER → 2023-03-21 10:32 | Outpatient (BNVA) | payer OTHER, SELFPAY | PROVIDERS: PCP Internal Medicine; Visit Provider Internal Medicine Endocrinology, Diabetes & Metabolism | DX: M81.0 Age-related osteoporosis without current pathological fracture (principal) | CPT/HCPCS: 99202 ==

== ENCOUNTER 2023-07-15 10:11 | Emergency (ER) | payer OTHER, SELFPAY ==
--- NOTE | ~2023-07-15 | XR_ITS ---
EXAMINATION: XR CHEST CLINICAL INFORMATION: Cough, history of asthma. COMPARISON: Chest 07/12/2018 TECHNIQUE: 2 views of the chest were obtained. FINDINGS: The lungs are well-expanded without acute pneumonic process or pleural effusion. Heart size normal. Slight prominent bilateral parahilar vascular markings. Question early congestion suspected. No gross bony abnormality seen. XR/XR chest 2V IMPRESSION: Suspect mild pulmonary vascular congestion. No acute pneumonic process seen.
[2023-07-15 10:22] VITALS: BP 206/116; PULSE 81; RESP 17; TEMP 36.6; O2SAT 98; BMI 19.7
[2023-07-15 11:37] LABS: COVID-19 Test Negative (Negative); IDNOW Serial# 08D9AD1C; IDNOW Serial# 9DB6401D; IDNOW Serial# BCCEAD1C; Influenza A Negative (Negative); Influenza B2 Negative (Negative); Strep A Nucleic Acid Negative (Negative)
[2023-07-15 12:30] VITALS: BP 194/110; PULSE 69; RESP 18; O2SAT 96
--- NOTE | 2023-07-15 12:32 | PC.NURSE ---
Patient reports sore throat and a slight cough x 2 days. Denies any other pain or discomfort. BP elevated- reports did not take BP meds today
--- NOTE | 2023-07-15 12:43 | ED_ITS ---
HPI - General Adult General Chief complaint: Upper Respiratory Symptoms Stated complaint: Fever Sore Throat Time Seen by Provider: 07/15/23 12:43 History of Present Illness HPI narrative: The patient is a 63-year-old woman with a history of hypertension. She is on lisinopril, amlodipine, and chlorthalidone for blood pressure. She also has history of asthma. Patient says for last 2 days she has had shortness of breath consistent with her asthma and she also has had a sore throat. She thinks she might of had a fever but has not taken her temperature. No chest pain. No pain or swelling in her legs. No peripheral edema. She says that she lives with her grandchild who has also had some respiratory symptoms. No chest pain. Related Data Previous Rx's Medication Instructions Recorded Ventolin HFA 90 mcg/actuation 2 puff inhalation Q6H PRN 09/02/22 aerosol inhaler (albuterol sulfate) shortness of breath or wheezing 30 days #8 grams atorvastatin 40 mg tablet 40 mg PO DAILY 90 days #90 tabs 09/02/22 fluoxetine 20 mg capsule 20 mg PO DAILY 90 days #90 caps 09/02/22 meclizine 25 mg tablet 25 mg PO TID PRN dizziness 30 days 09/02/22 #90 tabs multivitamin-ferrous 1 tab PO DAILY 90 days #90 tabs 09/02/22 fumarate-folic acid 18 mg-400 mcg tablet chlorthalidone 25 mg tablet 25 mg PO DAILY 90 days #90 tabs 12/03/22 food supplemt, lactose-reduced 1 ea PO DAILY 24 days #5,688 mL 03/03/23 (Ensure oral liquid) acetaminophen 500 mg tablet 1,000 mg (2 x 500 mg) PO QID PRN 05/09/23 (Tylenol Extra Strength) fever or pain 30 days #120 tabs amlodipine 10 mg tablet 10 mg PO DAILY 90 days #90 tabs 05/09/23 aspirin 81 mg tablet,delayed 81 mg PO DAILY 90 days #90 tabs 05/09/23 release buspirone 10 mg tablet 10 mg PO BID 90 days #180 tabs 05/09/23 cetirizine 10 mg tablet 10 mg PO DAILY #30 tabs 05/09/23 cholecalciferol (vitamin D3) 50 50 mcg PO DAILY #30 caps 05/09/23 mcg (2,000 unit) capsule lisinopril 40 mg tablet 40 mg PO DAILY 90 days #90 tabs 05/09/23 potassium chloride 20 mEq 20 meq PO BID 10 days #20 tabs 07/15/23 tablet,extended release Allergies Allergy/AdvReac Type Severity Reaction Status Date / Time No Known Allergies Allergy Verified 03/21/23 10:40 [No Known Allergies*] Review of Systems 2 Review of Systems: Yes all other systems are reviewed and are negative [facility] Past Medical History Medical History Asthma Essential hypertension Pure hypercholesterolemia URI (upper respiratory infection) Surgical History No pertinent past surgical history Family History Family History Mother Essential hypertension Pure hypercholesterolemia Social History Social History Housing: Apartment Alcohol intake: former Patient Tobacco Use Status: Never used Tobacco Smoked in Last 30 Days: No e-Cigarette/Vaping Use: Never Used Second Hand Smoke Exposure: No Use of substances other than those prescribed or required for medical reasons: No Advance Directives: No Advance Directives Information Provided: Yes service: No Current occupational status: disabled Cognitive needs: No Hearing needs: No Vision needs: Yes Physical Exam ED Vital Signs: Vital Signs - 24 hr 07/15/23 10:22 07/15/23 12:30 07/15/23 13:42 Temperature 97.9 F Pulse Rate 81 69 63 Respiratory Rate 17 18 Blood Pressure 206/116 H 194/110 H 206/103 H Pulse Oximetry 98 96 Oxygen Delivery Method Room Air Room Air Room Air Oxygen Flow Rate 97 07/15/23 13:58 07/15/23 14:25 Temperature Pulse Rate 68 69 Respiratory Rate 16 18 Blood Pressure 205/104 H Pulse Oximetry 96 Oxygen Delivery Method Room Air Oxygen Flow Rate BMI result Body Mass Index 19.7 Const Other: The patient is a thin 63-year-old. She does not appear in any distress. She is handling her secretions well. She does not appear short of breath. Her voice does not seem abnormal in any obvious way. HENMT Other: The appearance of the face is unremarkable. The face is symmetrical. The posterior pharynx is normal. Mucous membranes are moist. No erythema or swelling or tonsillar enlargement of any kind. No asymmetry. Eyes Other: Pupils are round equal, conjunctivae clear, extraocular movements intact Neck Other: No JVD. The neck is benign. No adenopathy. Moving her neck easily. Resp Other: No increased work of breathing. No carmen crackles or wheezes. Cardio Other: The patient has a regular rate and rhythm with no murmur GI Other: Abdomen is soft and nontender Skin Other: The skin is dry and unremarkable. Neuro Other: The patient is awake and alert. He is symmetrical. Speech is clear. Moving all 4 extremities normally. Seems grossly neurologically intact. Extrem Other: No peripheral edema. No calf swelling or tenderness. No calf asymmetry. Medications Administered Discontinued Medications Generic Name Dose Route Start Last Admin Trade Name Freq PRN Reason Stop Dose Admin Albuterol/Ipratropium 3 ml 07/15/23 14:16 07/15/23 14:25 Albuterol/Iprat 2.5/0.5mg 3 Ml Ampul.Neb INHALE 07/15/23 14:17 3 ml ONCE ONE Administration Amlodipine Besylate 10 mg 07/15/23 14:14 07/15/23 14:24 Amlodipine Besylate 10 Mg Tablet PO 07/15/23 14:15 10 mg ONCE ONE Administration Protocol Lisinopril 40 mg 07/15/23 14:14 07/15/23 14:24 Lisinopril 40 Mg Tablet PO 07/15/23 14:15 40 mg ONCE ONE Administration Protocol Potassium Chloride 40 meq 07/15/23 15:11 07/15/23 15:29 Potassium Chloride Er 20 Meq Tab.Er.Prt PO 07/15/23 15:12 40 meq ONCE ONE Administration Medical Decision Making Medical Decision Making [facility] Narrative: The patient is a 63-year-old female who presents with 2 days of sore throat. Her rapid strep is negative. She is also negative for COVID and influenza. She is hypertensive today but she says she did not take her morning medications. She normally takes lisinopril, amlodipine, and chlorthalidone for blood pressure. She does not appear obviously toxic in any way. Her throat appears normal. She has no cervical adenopathy. She was given a DuoNeb updraft. Her potassium was measured at 2.9 but this was after she received the albuterol updraft. Therefore her low potassium may be somewhat of an albuterol effect. Any then she will be given potassium repletion. On her labs today her calcium also came back somewhat low but her albumin is also low. This does not fully correct for her hypocalcemia but I do not think she is having a hypocalcemia emergency. Overall the patient looks quite well aside from her high blood pressure readings. She does not seem to have any signs of a hypertensive urgency or emergency however. She said that she felt better without any real specific treatment in the emergency room. She has a very benign clinical appearance. She says that she has an appointment with her PCP next week. She will be given a prescription for supplemental potassium. Otherwise she should continue her regular medications and follow-up. She should return to the emergency room if she feels worse. Lab Data 07/15/23 14:32 07/15/23 14:32 Labs: Lab Results 07/15/23 07/15/23 Range/Units 10:54 14:32 WBC 9.1 (4.8-10.8) X10*3/uL RBC 4.34 (4.20-5.50) X10*6/uL Hgb 12.7 (12.0-16.0) g/dl Hct 39.7 (37.0-47.0) % MCV 91.5 (80.0-98.0) fL MCH 29.3 (27.0-33.0) pg MCHC 32.0 (31.0-35.0) g/dl RDW 11.8 (11.0-16.0) % Plt Count 253 (160-400) X10*3/uL MPV 10.2 (9.4-12.3) fL Immature Gran % (Auto) 0.2 (0.0-0.4) % Neut % (Auto) 63.1 (45-73) % Lymph % (Auto) 27.6 (20-40) % [place] % (Auto) 6.6 (2-11) % Eos % (Auto) 1.8 (0-4) % Baso % (Auto) 0.7 (0-2) % Lymph # (Auto) 2.5 (1.2-4.9) X10*3/uL [place] # (Auto) 0.6 (0.1-1.2) X10*3/uL Eos # (Auto) 0.2 (0.0-0.4) X10*3/uL Baso # (Auto) 0.1 (0.0-0.2) X10*3/uL Abs Immat Gran (auto) 0.02 (0.00-0.03) X10*3/uL Absolute Neuts (auto) 5.8 (2.0-8.3) x10*3/uL Absolute Nucleated RBC 0.000 (0.0-0.012) X10*3/uL Nucleated RBC % (auto) 0.0 (0.0-0.2) /100WBC Sodium 144 (135-145) mmol/L Potassium 2.9 L D (3.3-5.1) mmol/L Chloride 119 H (96-108) mmol/L Carbon Dioxide 21 L (22-29) mmol/L Anion Gap 7 L (12-20) BUN 8 L (9-16) mg/dL Creatinine 0.58 (0.5-1.4) mg/dL Estim Creat Clear Calc 69.4 Estimated GFR > 60 Random Glucose 72 (60-115) mg/dL Calcium 6.7 L D (8.4-10.2) mg/dL Total Bilirubin 0.2 (0.0-1.0) mg/dL Direct Bilirubin < 0.2 (0.0-0.5) mg/dL AST 9 (5-31) U/L ALT 5 (0-31) U/L Alkaline Phosphatase 50 (39-117) U/L Troponin I High Sens < 2.7 (<3.5-17.0) ng/L C-Reactive Protein 0.29 (< or = 0.50) mg/dL B-Natriuretic Peptide 151 H (<100) pg/mL Total Protein 5.4 L (6.5-8.0) g/dL Albumin 3.1 L (3.5-5.0) g/dL COVID-19 (ALMAZ) Negative (Negative) COVID-19 Clin Com See Note Influenza Type A (THERESA) Negative (Negative) Influenza Type B (THERESA) Negative (Negative) Influenza A & B Note See Note S. pyogenes GrpA THERESA Negative (Negative) Independent Interpretation I performed an independent interpretation of an: EKG Interpretation: EKG at 14:23 shows normal sinus rhythm at 66 beats per minute. No significant change from previous EKG. Discharge Plan Discharge Clinical Impression: Acute sore throat, Hypokalemia Patient Disposition: Home, Self-Care Additional Instructions: Your potassium level today is somewhat low. I have sent a prescription for additional potassium to your pharmacy. Your other testing seems reassuring. Please make sure you take your blood pressure medications every day. Please keep your appointment with your regular doctor next week as prescribed. Return to the emergency room if you feel significantly worse. Prescriptions: New potassium chloride 20 mEq tablet extended release 20 meq PO BID 10 Days Qty: 20 0RF No Action atorvastatin 40 mg tablet 40 mg PO DAILY 90 Days Qty: 90 3RF fluoxetine 20 mg capsule 20 mg PO DAILY 90 Days Qty: 90 1RF meclizine 25 mg tablet 25 mg PO TID PRN (Reason: dizziness) 30 Days Qty: 90 1RF aepqgdeokhus-wysi-bnmgg acid 18-400 mg-mcg tablet 1 tab PO DAILY 90 Days Qty: 90 1RF albuterol sulfate [Ventolin HFA] 90 mcg/actuation HFA aerosol inhaler 2 puff inhalation Q6H PRN (Reason: shortness of breath or wheezing) 30 Days Qty: 8 1RF Ensure Liquid 1 ea PO DAILY 24 Days Qty: 5688 6RF acetaminophen [Tylenol Extra Strength] 500 mg tablet 1,000 mg PO QID PRN (Reason: fever or pain) 30 Days Qty: 120 1RF amlodipine 10 mg tablet 10 mg PO DAILY 90 Days Qty: 90 3RF aspirin 81 mg tablet,delayed release (DR/EC) 81 mg PO DAILY 90 Days Qty: 90 1RF cetirizine 10 mg tablet 10 mg PO DAILY Qty: 30 3RF cholecalciferol (vitamin D3) 50 mcg (2,000 unit) capsule 50 mcg PO DAILY Qty: 30 5RF lisinopril 40 mg tablet 40 mg PO DAILY 90 Days Qty: 90 3RF buspirone 10 mg tablet 10 mg PO BID 90 Days Qty: 180 0RF chlorthalidone 25 mg tablet 25 mg PO DAILY 90 Days Qty: 90 1RF Referrals: Vinita Sykes MD [Primary Care Provider] -
[2023-07-15 13:42] VITALS: BP 206/103; PULSE 63
[2023-07-15 13:58] VITALS: BP 205/104; PULSE 68; RESP 16; O2SAT 96
--- NOTE | 2023-07-15 14:12 | ECG_ITS ---
Test Reason : sob Blood Pressure : / mmHG Vent. Rate : 066 BPM Atrial Rate : 066 BPM P-R Int : 138 ms QRS Dur : 084 ms QT Int : 452 ms P-R-T Axes : 054 041 087 degrees QTc Int : 473 ms Normal sinus rhythm Minimal voltage criteria for LVH, may be normal variant ( Sokolow-Morrison ) Borderline ECG When compared with ECG of 04-SEP-2021 23:25, No significant change was found Referred By: Raul Cabrera Electronically Signed By:JAYCE RAMIREZ
[2023-07-15] MEDS: amLODIPine Besylate 10 MG TABLET PO (14:24)
[2023-07-15] MEDS: lisinopriL 40 MG TABLET PO (14:24)
[2023-07-15 14:25] VITALS: PULSE 69; RESP 18; O2SAT 95
[2023-07-15] MEDS: Albuterol/Iprat 2.5/0.5MG 3 ML AMPUL.NEB INHALE (14:25)
[2023-07-15 14:35] LABS: MANUAL DIFF FLAG NO
[2023-07-15 14:40] LABS: Basophils Absolute Auto 0.1 X10*3/uL (0.0-0.2); Basophils Percent Auto 0.7 % (0-2); Eosinophils Absolute Auto 0.2 X10*3/uL (0.0-0.4); Eosinophils Percent Auto 1.8 % (0-4); Hematocrit 39.7 % (37.0-47.0); Hemoglobin 12.7 g/dl (12.0-16.0); Imm Gran Abs Auto 0.02 X10*3/uL (0.00-0.03); Imm Gran Pct Auto 0.2 % (0.0-0.4); Lymphocytes Absolute Auto 2.5 X10*3/uL (1.2-4.9); Lymphocytes Percent Auto 27.6 % (20-40); Mean Corpuscular Hemoglobin 29.3 pg (27.0-33.0); Mean Corpuscular Volume 91.5 fL (80.0-98.0); Mean Platelet Volume 10.2 fL (9.4-12.3); Monocytes Absolute Auto 0.6 X10*3/uL (0.1-1.2); Monocytes Percent Auto 6.6 % (2-11); Neutrophils Absolute Auto 5.8 x10*3/uL (2.0-8.3); Neutrophils Percent Auto 63.1 % (45-73); Platelet Count 253 X10*3/uL (160-400); Red Blood Count 4.34 X10*6/uL (4.20-5.50); Red Cell Distribution Width 11.8 % (11.0-16.0); White Blood Count 9.1 X10*3/uL (4.8-10.8)
[2023-07-15 14:56] LABS: Alanine Aminotransferase 5 U/L (0-31); Albumin Level 3.1 g/dL (3.5-5.0); Alkaline Phosphatase 50 U/L (39-117); Anion Gap 7 (12-20); Aspartate Amino Transferase 9 U/L (5-31); Bilirubin Direct < 0.2 mg/dL (0.0-0.5); Bilirubin Total 0.2 mg/dL (0.0-1.0); Blood Urea Nitrogen 8 mg/dL (9-16); C Reactive Protein 0.29 mg/dL (< or = 0.50); Calcium 6.7 mg/dL (8.4-10.2); Carbon Dioxide 21 mmol/L (22-29); Chloride 119 mmol/L (96-108); Creatinine Clr Calc Pharmacy 69.4; Estimated Glomerular Filt Rate > 60; Glucose Random 72 mg/dL (60-115); Potassium 2.9 mmol/L (3.3-5.1); Sodium 144 mmol/L (135-145); Total Protein 5.4 g/dL (6.5-8.0)
[2023-07-15 15:02] LABS: B Type Natriuretic Peptide 151 pg/mL (<100)
[2023-07-15 15:25] LABS: Troponin-I High Sensitivity < 2.7 ng/L (<3.5-17.0)
[2023-07-15] MEDS: Potassium Chloride ER 20 MEQ TAB.ER.PRT 40 MEQ PO (15:29)
== END 2023-07-15 16:21 | disposition home or self-care (01) ==
PROVIDERS: Emergency Provider Emergency Medicine; PCP Internal Medicine
DX: J02.9 Acute pharyngitis, unspecified (principal); E87.6 Hypokalemia; R50.9 Fever, unspecified; R06.02 Shortness of breath; R94.31 Abnormal electrocardiogram [ECG] [EKG]; Z79.899 Other long term (current) drug therapy; Z11.52 Encounter for screening for COVID-19; Z20.822 Contact with and (suspected) exposure to COVID-19
CPT/HCPCS: 36415; 71046; 80048; 80076; 83880; 84484; 85025; 86140; 87502; 87635; 87651; 93005; 94640; 99284; 99285

== ENCOUNTER → 2023-07-15 14:12 | Outpatient (BNV) | payer OTHER, SELFPAY | PROVIDERS: Emergency Provider Emergency Medicine; PCP Internal Medicine; Visit Provider Internal Medicine | DX: R06.02 Shortness of breath (principal) | CPT/HCPCS: 93010 ==

== ENCOUNTER → 2023-07-22 10:33 | Outpatient (BNVA) | payer OTHER, SELFPAY | PROVIDERS: PCP Internal Medicine; Visit Provider Internal Medicine Endocrinology, Diabetes & Metabolism ==

== ENCOUNTER 2023-07-22 10:54 | Outpatient (REF) | payer OTHER, SELFPAY ==
[2023-07-22 14:01] LABS: Phosphorus 3.7 mg/dL (2.7-4.5)
[2023-07-22 14:05] LABS: Vitamin D 25-OH Total 60.3 ng/mL (>30)
[2023-07-23 21:18] LABS: Prot Elec - Albumin 4.3 g/dL (3.8-4.8); Prot Elec - Alpha1 0.3 g/dL (0.2-0.3); Prot Elec - Alpha2 0.7 g/dL (0.5-0.9); Prot Elec - Beta 1 0.4 g/dL (0.4-0.6); Prot Elec - Beta 2 0.5 g/dL (0.2-0.5); Prot Elec - Gamma 1.1 g/dL (0.8-1.7); Prot Elec - Total Protein 7.4 g/dL (6.1-8.1)
== END 2023-07-22 10:55 | disposition home or self-care (01) ==
LOC: HO.10HDL 10:54
PROVIDERS: Visit Provider Internal Medicine Endocrinology, Diabetes & Metabolism
DX: M81.0 Age-related osteoporosis without current pathological fracture (principal); E55.9 Vitamin D deficiency, unspecified
CPT/HCPCS: 82306; 84100; 84165; 86335

== ENCOUNTER 2023-07-24 10:01 | Outpatient (REF) | payer OTHER, SELFPAY | END 2023-07-24 10:02 | disposition home or self-care (01) | LOC: HO.10HDLNP 10:01 | PROVIDERS: Visit Provider Internal Medicine Endocrinology, Diabetes & Metabolism | DX: M81.0 Age-related osteoporosis without current pathological fracture (principal) | CPT/HCPCS: 82340; 82570 ==

== ENCOUNTER 2023-07-30 12:12 | Outpatient (AMB) | payer OTHER, SELFPAY ==
[2023-07-30 12:42] VITALS: BP 200/124; PULSE 75; RESP 17; O2SAT 97; BMI 19.8
--- NOTE | 2023-07-30 12:42 | A.OFFPC_ITS ---
Vital Signs 07/30/23 12:42 07/30/23 13:12 Height 4 ft 11 in Weight 98 lb 2 oz BMI 19.8 BP 200/124 H 200/100 H Blood Pressure Location Lt brachial Lt brachial Position Sitting Sitting Respiration 17 Pulse 75 Pulse Source Pulse Oximeter Pulse Oximetry (%) 97 Oxygen Delivery Method Room Air Intake Visit Reasons: Annual exam Intake Note: Patient is here today for a physical. 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 Accompanied by: Self / Same As Patient Allergies No Known Allergies [No Known Allergies*] Allergy (Verified 07/30/23 12:58) Medication List - Last Reconciled 07/30/23 by Vinita Ortiz MD acetaminophen (Tylenol Extra Strength) 1,000 mg (2 x 500 mg) PO QID PRN 30 days amlodipine 10 mg PO DAILY 90 days aspirin 81 mg PO DAILY 90 days atorvastatin 40 mg PO DAILY 90 days buspirone 10 mg PO BID 90 days cetirizine 10 mg PO DAILY chlorthalidone 25 mg PO DAILY 90 days cholecalciferol (vitamin D3) 50 mcg PO DAILY fluoxetine 20 mg PO DAILY 90 days food supplemt, lactose-reduced (Ensure oral liquid) 1 ea PO DAILY 24 days lisinopril 40 mg PO DAILY 90 days meclizine 25 mg PO TID PRN 30 days anfwhxkofijh-iciw-egsus acid 18-400 mg-mcg 1 tab PO DAILY 90 days potassium chloride ER 20 mEq PO BID 10 days Ventolin HFA 90 mcg/actuation (albuterol sulfate) 2 puffs inhalation Q6H PRN 30 days NS Tobacco use date assessed: 07/30/23 Dental Screening Dental Screen Date: 07/30/23 Did you have a dental visit in the last 12 months?: No Did you have a dental problem in the last 6 months where you did not have access to dental care?: No Was dental information given to patient?: No (dentures) HPI HPI Comments History of Present Illness Details This is a 63-year-old female with mild major depression that comes for her physical exam. Depression stable with SSRIs. Last mammogram was December 2022 and was normal. Has not had a Pap smear in over 4 years as per patient and was referred last year but did not went. I am referring her again. Has not had a colonoscopy and will be refer through open access. No chest pain or shortness of breath. Blood pressure elevated and I will add hydralazine 25 mg 3 times a day. Patient did took all her medications today. [facility] Medical History URI (upper respiratory infection) Pure hypercholesterolemia Essential hypertension Asthma Surgical History No pertinent past surgical history Family History Mother Essential hypertension Pure hypercholesterolemia Father No problems noted. Social History Housing: Apartment Alcohol intake: former Patient Tobacco Use Status: Never used Tobacco e-Cigarette/Vaping Use: Never Used Second Hand Smoke Exposure: No service: No Current occupational status: disabled Cognitive needs: No Hearing needs: No Vision needs: Yes Questionnaire PHQ-9 Over the last 2 weeks, how often have you been bothered by any of the following problems? 1. Little interest or pleasure in doing things: not at all 2. Feeling down, depressed, or hopeless: not at all 3. Trouble falling or staying asleep, or sleeping too much: not at all 4. Feeling tired or having little energy: not at all 5. Poor appetite or overeating: not at all 6. Feeling bad about yourself - or that you are a failure or have let yourself or your family down: not at all 7. Trouble concentrating on things, such as reading the newspaper or watching television: not at all 8. Moving or speaking so slowly that other people could have noticed. Or the opposite - being so fidgety or restless that you have been moving around a lot more than usual: not at all 9. Thoughts that you would be better off or of hurting yourself in some way: not at all Total score: 0 Depression Screening Interpretation: Negative Depression Screening Done: Yes 39844 - PHQ-9 Billing: Yes Source: Developed by Drs. Kamari Toledo, Edilia Bains, Preston Raymond and colleagues, with an educational rhoda from [employer]. Thrive Questionnaire Date Thrive assessed: 07/30/23 I am a: Patient What is your living situation today?: I have a steady place to live Within the past 12 months, did the food you bought not last and you didn't have the money to get more?: Never true Within the past 12 months, did you worry whether your food would run out before you got money to buy more?: Never true Do you have trouble paying for medicines?: No Do you have trouble getting transportation to medical appointments?: No Do you have trouble paying your heating and electricity bill?: No Do you have trouble taking care of your child, family member or friend?: No Do you have trouble with day-to-day activities such as bathing, preparing meals, shopping, managing finances, etc.?: No Are you currently unemployed and looking for a job?: No Are you interested in more education?: No Please select the resources that you would like help with: None Currently or been in a relationship where the following occur: no concerns reported AUDIT C Alcohol Use Questionnaire (AUDIT-C) 1. How often do you have a drink containing alcohol?: Never 3. How often do you have six or more drinks on one occasion?: Never Total Score: 0 Score Reviewed/Action Taken: Yes NAM-7 AMB Questionnaire NAM-7 Date NAM - 7 assessed: 07/30/23 Feeling nervous, anxious, or on edge: 0 = Not at all Not being able to stop or control worryin = Not at all Worrying too much about different things: 0 = Not at all Trouble relaxin = Not at all Being so restless that it is hard to sit still: 0 = Not at all Becoming easily annoyed or irritable: 0 = Not at all Feeling afraid as if something awful might happen: 0 = Not at all Total NAM-7 score (0-4 normal; 5-9 mild; 10-14 moderate; 15-21 severe): 0 Source: Developed by Drs. Kamari Toledo, Edilia Bains, Preston Raymond and colleagues, with an educational rhoda from [employer]. NMA-7 Assessment Billing NAM-7 Assessment Tool: NAM-7 Assessment 11119 Review of Systems Const All systems reviewed & are unremarkable except as noted in HPI and below Eyes Reports no additional complaints, Denies change in vision and Denies other visual disturbances Card Denies chest pain at rest, Denies chest pain with activity, Denies edema, Denies irregular heart rhythm, Denies claudication, Denies dyspnea, Denies dyspnea on exertion, Denies orthopnea, Denies paroxysmal nocturnal dyspnea and Denies slow heart rate Resp Denies cough, Denies dyspnea and Denies dyspnea on exertion GI Denies abdominal pain, Denies change in bowel habits, Denies excessive flatus, Denies nausea and Denies vomiting Denies urinary incontinence, Denies urinary hesitancy and Denies urinary urgency Musc Denies abnormal gait, Denies atrophy, Denies deformity and Denies limited range of motion Skin/Breast Denies bleeding lesions, Denies changing lesions and Denies rash Neuro Denies abnormal gait, Denies behavioral changes, Denies confusion and Denies lack of coordination Psych Denies behavioral changes and Denies confusion Physical exam (Primary Care) Vital Signs: Last Vital Signs Pulse 75 07/30/23 12:42 Resp 17 07/30/23 12:42 BP 200/124 H 07/30/23 12:42 Pulse Ox 97 07/30/23 12:42 Oxygen Delivery Method Room Air 07/30/23 12:42 BMI result Body Mass Index 19.8 Tobacco/Smoking Status: Tobacco use Status Tobacco use date assessed 07/30/23 07/30/23 12:51 Patient Tobacco Use Status Never used Tobacco 07/30/23 12:44 e-Cigarette/Vaping Use Never Used 07/30/23 12:44 PHQ-9: PHQ-9 Score PHQ-9: Total score 0 07/30/23 12:51 Depression Screening Interpretation: Negative Thrive Assessment: Date of Thrive Assessment Date Thrive assessed 07/30/23 07/30/23 12:51 Currently or been in a relationship where the following occur: no concerns reported Const General: No confusion Orientation/consciousness: patient oriented x3 and No confusion HENMN Head: Yes normal to inspection, Yes normocephalic and Yes atraumatic Ears: external ears normal Eyes General: appearance normal, both eyes and all related structures Eyelids: Yes eyelids normal Conjunctivae: conjunctivae normal Neck Neck: Yes normal visual inspection and Yes supple Resp Effort & Inspection: normal respiratory effort Auscultation: clear to auscultation bilaterally Cardio Jugular venous distension: no JVD Rate: regular rate Rhythm: regular rhythm Heart sounds: S1 normal heart sound present and S2 normal heart sound present GI Inspection: Yes normal to inspection Palpation (GI): Soft to palpation and nontender Auscultation: normal bowel sounds Skin General skin exam: no rashes or lesions noted Neuro General: patient oriented x3, no focal motor deficits and No confusion Extrem General: Yes full ROM Psych Appearance: grossly normal Assessment and Plan Assessment & Plan (1) Physical exam: Code(s): Z00.00 - Encounter for general adult medical examination without abnormal findings Plan: Repeat in a year. (2) Mild major depression: Code(s): F32.0 - Major depressive disorder, single episode, mild Plan: Continue SSRIs. Orders: Orders Vitamin D 25-OH Total Today E55.9 - Vitamin D deficiency, unspecified Lipid Panel Today E78.5 - Hyperlipidemia, unspecified Comprehensive [place]. Panel Fast Today Z00.00 - Encounter for general adult medical examination without abnormal findings Referrals Open Access Screening Colonoscopy Referral Z12.11 - Encounter for screening for malignant neoplasm of colon COMPLIANCE CLERK Referral Z12.4 - Encounter for screening for malignant neoplasm of cervix Medications: New 2 hydralazine 25 mg PO TID 30 days 90 tabs 2RF I10 - Essential (primary) hypertension Discontinued meclizine Discontinued Reason: Patient Completed Course 25 mg PO TID 30 days PRN 90 tabs 1RF dizziness Coding Level of Care Code Est Pt Prev Care 40-64y(68484) Diagnoses Physical exam Z00.00 Mild major depression F32.0 Additional Codes NAM-7 Assessment Billing - NAM-7 Assessment Tool: NAM-7 Assessment 88636 ([id number]) Time Spent (min) 34
[2023-07-30 13:12] VITALS: BP 200/100
== END 2023-07-30 13:22 | disposition home or self-care (01) ==
PROVIDERS: Visit Provider Internal Medicine
DX: Z00.00 Encounter for general adult medical examination without abnormal findings (principal); F32.0 Major depressive disorder, single episode, mild; I10 Essential (primary) hypertension
CPT/HCPCS: 99396

== ENCOUNTER 2023-08-22 14:46 | Outpatient (AMB) | payer OTHER, SELFPAY ==
--- NOTE | 2023-08-22 15:06 | A.OFFVIS_ITS ---
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 She is doing well with no concerns. Attempting to eat a healthy diet with calcium and vitamin D, admits to being a picky eater, and stays active with exercise. Currently not sexually active. Denies any vaginal dryness or irritation. STI testing offered; she declines. Last pap smear; 2016. Last mammogram; 2022. Colonoscopy is not UTD. Denies any family history of breast, ovarian or colon cancer. [facility] Medical History URI (upper respiratory infection) Pure hypercholesterolemia Essential hypertension Asthma Surgical History Hx of tubal ligation Family History Mother Essential hypertension Pure hypercholesterolemia Father No problems noted. Social History Household Members Other:: daughter Housing: Apartment Alcohol intake: former Patient Tobacco Use Status: Never used Tobacco e-Cigarette/Vaping Use: Never Used Second Hand Smoke Exposure: No service: No Current occupational status: disabled Sexual orientation: Straight/Heterosexual Gender identity: Female Cognitive needs: No Hearing needs: No Vision needs: Yes Female Reproductive History Menstrual Menopause type: natural Total pregnancies: 5 Full term: 5 Number of Living Children: 5 Date of last pap smear: 09/25/16 Date of Mammogram: 12/20/22 Date of last Bone Density Screenin12/20/22 Review of Systems Const All systems reviewed & are unremarkable except as noted in HPI and below Reports as per HPI Eyes Reports no additional complaints ENT Reports no additional complaints Card Reports no additional complaints Resp Reports no additional complaints GI Reports as per HPI and Reports no additional complaints Reports as per HPI Musc Reports no additional complaints Skin/Breast Reports as per HPI Neuro Reports no additional complaints Psych Reports no additional complaints Endo Reports no additional complaints Lan/Lymph Reports no additional complaints Aller/Immun Reports no additional complaints Physical Exam Vital Signs: Last Vital Signs BP 150/102 H 08/22/23 15:07 BMI result Body Mass Index 19.4 Const General: cooperative, healthy appearing, no acute distress, well developed and alert Orientation/consciousness: patient oriented x3 HEENT Head: Yes normal to inspection Eyes General: appearance normal, both eyes and all related structures Neck Neck: Yes normal visual inspection Thyroid: Thyroid normal Chest Chest palpation & inspection: normal inspection of the chest and other (no puckering, dimpling, peau de orange, retraction, discharge, masses) Breast/axilla inspection: normal inspection of the breasts Breast/axilla palpation: normal palpation of the breasts Resp Effort & Inspection: normal respiratory effort GI Inspection: Yes normal to inspection Palpation (GI): Soft to palpation Rectal Exam - Female: deferred General: Yes bladder normal to palpation External Female Exam: normal external appearance and normal appearance of the urethra Speculum Exam - Vagina: normal appearance of the vagina, normal palpation, normal vaginal discharge and vagina atrophic Speculum Exam - Cervix: normal appearance of the cervix, normal palpation and Cervical mass present (polyp) Bimanual exam- vagina & uterus: normal bimanual exam, normal palpation, uterine size normal, bladder normal to palpation, normal palpation and non-tender Bimanual Exam- Adnexa, other: no masses Skin General skin exam: no rashes or lesions noted Rashes: no rashes Neuro General: patient oriented x3 Cognition (Neuro): normal cognition Extrem General: Yes normal to inspection Psych Attitude: cooperative Thought process: Normal thought process present Assessment & Plan Assessment & Plan (1) Encounter for well woman exam with routine gynecological exam: Code(s): Z01.419 - Encounter for gynecological examination (general) (routine) without abnormal findings (2) Cervical polyp: Code(s): N84.1 - Polyp of cervix uteri Plan Discussed: Current recommendations for pap smears per ASCCP guidelines. Breast awareness, periodic self breast exams and yearly mammogram. Maintain a healthy lifestyle, well balanced diet including Calcium 1,200 mg and Vitamin D 600 IU daily, and routine exercise. Contact the office with any postmenopausal bleeding. Appointment given for a polypectomy removal in 2 weeks. Advised to take her blood pressure medicines on time and to report to her primary care for a follow-up on her blood pressure. Patient verbalizes understanding and agrees to the plan of care. She was given opportunity to ask questions and all questions were answered to the best of my ability. RTO in 1 year for annual gamma facilities operator exam. This note is constructed using voice recognition software. While every effort has been made to ensure accuracy, press box custodian errors may have been included. Orders: Orders Pap Smear Today Z01.419 - Encounter for gynecological examination (general) (routine) without abnormal findings Coding Level of Care Code New Pt Prev Care 40-64y(88536) Diagnoses Encounter for well woman exam with routine gynecological exam Z01.419 Cervical polyp N84.1
[2023-08-22 15:07] VITALS: BP 150/102; BMI 19.4
== END 2023-08-22 15:43 | disposition home or self-care (01) ==
LOC: HO.HWS 14:46
PROVIDERS: PCP Internal Medicine; Visit Provider Advanced Practice Midwife
DX: Z01.419 Encounter for gynecological examination (general) (routine) without abnormal findings (principal); N84.1 Polyp of cervix uteri
CPT/HCPCS: 99386

== ENCOUNTER 2023-08-22 14:46 | Outpatient (REF) | payer OTHER, SELFPAY ==
[2023-08-28 20:59] LABS: HPV mRNA E6/E7 rflx Not Detected (Not Detected)
== END 2023-08-22 14:47 | disposition home or self-care (01) ==
LOC: HO.LNP 14:46
PROVIDERS: PCP Internal Medicine; Visit Provider Advanced Practice Midwife
DX: Z01.419 Encounter for gynecological examination (general) (routine) without abnormal findings (principal); Z11.51 Encounter for screening for human papillomavirus (HPV); N84.1 Polyp of cervix uteri
CPT/HCPCS: 87624; 88142; 99386

== ENCOUNTER 2023-12-01 12:09 | Outpatient (AMB) | payer OTHER, SELFPAY ==
--- NOTE | 2023-12-01 13:04 | MHC.PC.OV ---
Vital Signs 12/01/23 13:05 12/01/23 13:38 Height 4 ft 11 in Weight 96 lb BMI 19.4 BP 196/120 H 190/110 H Blood Pressure Location Lt brachial Lt brachial Position Sitting Sitting Intake Visit Reasons: bp Intake Note: Patient here for a follow up BP Consultant Education Required: No Accompanied by: Self / Same As Patient Allergies No Known Allergies [No Known Allergies*] Allergy (Verified 12/01/23 13:21) Medication List - Last Reconciled 12/01/23 by Vinita Ortiz MD acetaminophen (Tylenol Extra Strength) 1,000 mg (2 x 500 mg) PO QID PRN 30 days amlodipine 10 mg PO DAILY 90 days aspirin 81 mg PO DAILY 90 days atorvastatin 40 mg PO DAILY 90 days buspirone 10 mg PO BID 90 days cetirizine 10 mg PO DAILY chlorthalidone 25 mg PO DAILY 90 days cholecalciferol (vitamin D3) 50 mcg PO DAILY fluoxetine 20 mg PO DAILY 90 days food supplemt, lactose-reduced (Ensure oral liquid) 1 ea PO DAILY 24 days hydralazine 50 mg PO TID 30 days lisinopril 40 mg PO DAILY 90 days pvjklzebhfsm-wijw-yleeo acid 18-400 mg-mcg 1 tab PO DAILY 90 days potassium chloride ER 20 mEq PO BID 10 days Ventolin HFA 90 mcg/actuation (albuterol sulfate) 2 puffs inhalation Q6H PRN 30 days NS Tobacco use date assessed: 07/30/23 Dental Screening Dental Screen Date: 07/30/23 HPI HPI Comments History of Present Illness Details This is a 63-year-old female with uncontrolled hypertension, pure hypercholesterolemia, mild major depression, osteoporosis and allergic rhinitis that comes today for follow-up on her conditions. Blood pressure elevated and she said she is taking hydralazine 25 mg twice a day. I increase it to 50 mg and I encouraged her to take it 3 times a day. On statins for her elevated cholesterol. Depression stable with SSRIs. Bone density test from December 2022 shows osteoporosis and will see Rheumatology tomorrow. Allergic rhinitis stable with antihistamines as needed. REPLACED BY [facility] Medical History (Updated 12/01/23 @ 13:41 by Vinita Ortiz MD) Malnutrition URI (upper respiratory infection) Pure hypercholesterolemia Essential hypertension Asthma Surgical History Hx of tubal ligation Family History Mother Essential hypertension Pure hypercholesterolemia Father No problems noted. Social History Household Members Other:: daughter Housing: Apartment Alcohol intake: former Patient Tobacco Use Status: Never used Tobacco e-Cigarette/Vaping Use: Never Used Second Hand Smoke Exposure: No service: No Current occupational status: disabled Sexual orientation: Straight/Heterosexual Gender identity: Female Cognitive needs: No Hearing needs: No Vision needs: Yes Questionnaire Thrive Questionnaire Date Thrive assessed: 07/30/23 NAM-7 AMB Questionnaire NAM-7 Date NAM - 7 assessed: 07/30/23 Source: Developed by Drs. Kamari Toledo, Edilia Bains, Preston Raymond and colleagues, with an educational rhoda from [employer]. Review of Systems Const All systems reviewed & are unremarkable except as noted in HPI and below Eyes Reports no additional complaints, Denies change in vision and Denies other visual disturbances Card Denies chest pain at rest, Denies chest pain with activity, Denies edema, Denies irregular heart rhythm, Denies claudication, Denies dyspnea, Denies dyspnea on exertion, Denies orthopnea, Denies paroxysmal nocturnal dyspnea and Denies slow heart rate Resp Denies cough, Denies dyspnea and Denies dyspnea on exertion GI Denies abdominal pain, Denies change in bowel habits, Denies excessive flatus, Denies nausea and Denies vomiting Denies urinary incontinence, Denies urinary hesitancy and Denies urinary urgency Physical exam (Primary Care) Vital Signs: Last Vital Signs BP 196/120 H 12/01/23 13:05 BMI result Body Mass Index 19.4 Tobacco/Smoking Status: Tobacco use Status Tobacco use date assessed 07/30/23 12/01/23 13:09 Patient Tobacco Use Status Never used Tobacco 12/01/23 13:09 e-Cigarette/Vaping Use Never Used 12/01/23 13:09 Thrive Assessment: Date of Thrive Assessment Date Thrive assessed 07/30/23 12/01/23 13:09 Resp Effort & Inspection: normal respiratory effort Auscultation: clear to auscultation bilaterally Cardio Jugular venous distension: no JVD Rate: regular rate Rhythm: regular rhythm Heart sounds: S1 normal heart sound present and S2 normal heart sound present Extrem General: Yes full ROM Assessment and Plan Assessment & Plan (1) Uncontrolled hypertension: Code(s): I10 - Essential (primary) hypertension Plan: Continue amlodipine and lisinopril. Increase hydralazine from 25 mg to 50 mg 3 times a day. Blood pressure goal is equal or less than 130/80. Recheck blood pressure with nurse navigator in 3 weeks. (2) Mild major depression: Code(s): F32.0 - Major depressive disorder, single episode, mild Plan: Continue SSRIs. (3) Pure hypercholesterolemia: Code(s): E78.00 - Pure hypercholesterolemia, unspecified Plan: Continue statins. (4) Osteoporosis: Code(s): M81.0 - Age-related osteoporosis without current pathological fracture Plan: Follow-up with rheumatology. (5) Allergic rhinitis: Code(s): J30.9 - Allergic rhinitis, unspecified Qualifiers: Allergic rhinitis trigger: pollen Allergic rhinitis seasonality: seasonal Qualified Code(s): J30.1 - Allergic rhinitis due to pollen Plan: Continue antihistamines as needed. Orders: Orders US renal BI Today I10 - Essential (primary) hypertension Medications: Changed From hydralazine 50 mg PO TID 30 days 90 tabs 1RF To hydralazine 50 mg PO BID 30 days 60 tabs 1RF From hydralazine 50 mg PO BID 30 days 60 tabs 1RF To hydralazine 50 mg PO Q8H 30 days 90 tabs 1RF Coding Level of Care Code Est Pt Level 4 (94174) Diagnoses Uncontrolled hypertension I10 Mild major depression F32.0 Pure hypercholesterolemia E78.00 Osteoporosis M81.0 Seasonal allergic rhinitis due to pollen J30.1 Allergic rhinitis trigger: pollen Allergic rhinitis seasonality: seasonal Time Spent (min) 24
[2023-12-01 13:05] VITALS: BP 196/120; BMI 19.4
[2023-12-01 13:38] VITALS: BP 190/110
== END 2023-12-01 13:55 | disposition home or self-care (01) ==
PROVIDERS: PCP Internal Medicine; Visit Provider Internal Medicine
DX: I10 Essential (primary) hypertension (principal); F32.0 Major depressive disorder, single episode, mild; E78.00 Pure hypercholesterolemia, unspecified; M81.0 Age-related osteoporosis without current pathological fracture; J30.1 Allergic rhinitis due to pollen
CPT/HCPCS: 99214

== ENCOUNTER 2023-12-02 12:39 | Outpatient (AMB) | payer OTHER, SELFPAY ==
[2023-12-02 12:44] VITALS: BP 190/98; PULSE 88; BMI 19.4
--- NOTE | 2023-12-02 12:44 | A.OFFVIS_ITS ---
Vital Signs 12/02/23 12:44 Height 4 ft 11 in Weight 95 lb 14.417 oz BMI 19.4 BP 190/98 H Blood Pressure Location Rt brachial Position Sitting Pulse 88 Pulse Source Pulse Oximeter Intake Visit Reasons: Age-related osteoporosis-confirmed Intake Note: Patient presents today for Age-related Osteoporosis follow up. Dredge Mechanic Required: Yes Dredge Mechanic Language: Envelope Machine Adjuster Name: Lolis Information Interpreted: non-clinical & clinical Accompanied by: Self / Same As Patient Allergies No Known Allergies [No Known Allergies*] Allergy (Verified 12/02/23 12:49) Medication List - Last Reconciled 12/02/23 by Kamari Beatty MD acetaminophen (Tylenol Extra Strength) 1,000 mg (2 x 500 mg) PO QID PRN 30 days amlodipine 10 mg PO DAILY 90 days aspirin 81 mg PO DAILY 90 days atorvastatin 40 mg PO DAILY 90 days buspirone 10 mg PO BID 90 days cetirizine 10 mg PO DAILY chlorthalidone 25 mg PO DAILY 90 days cholecalciferol (vitamin D3) 50 mcg PO DAILY fluoxetine 20 mg PO DAILY 90 days food supplemt, lactose-reduced (Ensure oral liquid) 1 ea PO DAILY 24 days hydralazine 50 mg PO Q8H 30 days lisinopril 40 mg PO DAILY 90 days znxughoubvuo-cicj-xgquu acid 18-400 mg-mcg 1 tab PO DAILY 90 days potassium chloride ER 20 mEq PO BID 10 days Ventolin HFA 90 mcg/actuation (albuterol sulfate) 2 puffs inhalation Q6H PRN 30 days NS HPI Comments Details: 62 YO Female with is seen in consultation at the request of PCP for Osteoporosis. First diagnosed in last mo . Not Received treatment in the past No history of pathologic fracture or ONJ. Has very few servings of dietary calcium per day in the form of yogurt . Not Takes Calcium supplement . Takes ? IU of Vitamin D daily. Denies ever using PPI, anticoagulant, antiepileptic or glucocorticoid medication. Not Does weight bearing exercise Fracture history: No Height loss: No PROGRAM OFFICER history: age 52 - nl menses prior Denies history of Kidney stones: Denies family history of Osteoporosis or hip fracture. UTD on dental cleanings and sees dentist every 6 months. Adentulous No hot flashes . No family hx of breast Ca DXA dated : 12/20/2022 FINDINGS: AP SPINE L1-L4: Current: BMD 0.874 g/cm2, Z-score -0.6, T-score -2.5, osteoporosis, 0.1% increase from baseline (<5% change is not significant). Baseline: BMD 0.873 g/cm2. LEFT FEMUR, NECK: Current: BMD 0.792 g/cm2, Z-score 0.0, T-score -1.8, osteopenia. Baseline: BMD 0.837 g/cm2. LEFT FEMUR, TOTAL: Current: BMD 0.842 g/cm2, Z-score 0.2, T-score -1.3, osteopenia, 0.4% increase from baseline (<5% change is not significant). Baseline: BMD 0.839 g/cm2. IDENTIFIED RISK FACTORS: Low body weight, menopause. HISTORY OF FRACTURE: None listed. MEDICATIONS: Calcium supplements or multivitamin, vitamin D. MM/XR DEXA axial skeleton IMPRESSION: 1. DIAGNOSIS: Osteoporosis based on the lowest T-score value of -2.5 in the lumbar spine applying World Health Organization criteria.? ? Labs: Secondary workup was negative but total calcium was low with low albumin as well as low potassium. She states when the blood work was done she was in the emergency department and feeling ill [facility] Medical History (Updated 12/01/23 @ 13:41 by Vinita Ortiz MD) Malnutrition URI (upper respiratory infection) Pure hypercholesterolemia Essential hypertension Asthma Surgical History Hx of tubal ligation Family History Mother Essential hypertension Pure hypercholesterolemia Father No problems noted. Social History Household Members Other:: daughter Housing: Apartment Alcohol intake: former Patient Tobacco Use Status: Never used Tobacco e-Cigarette/Vaping Use: Never Used Second Hand Smoke Exposure: No service: No Current occupational status: disabled Sexual orientation: Straight/Heterosexual Gender identity: Female Cognitive needs: No Hearing needs: No Vision needs: Yes Physical Exam Vital Signs: Last Vital Signs Pulse 88 12/02/23 12:44 BP 190/98 H 12/02/23 12:44 BMI result Body Mass Index 19.4 Assessment & Plan Assessment & Plan (1) Osteoporosis: Code(s): M81.0 - Age-related osteoporosis without current pathological fracture Category: Medical Plan: This 63-year-old female with history of osteoporosis. Rule out secondary causes. Plan is ensure continuation 1200 mg of calcium through diet and supplement and 2000 IU of vitamin D3. At this point would not use pharmacological treatment for osteoporosis considering the patient has borderline osteoporosis. Will refer patient back to primary care provider who can check another bone density in about 2 years time if there is further progression, can either start oral bisphosphonate or send patient back to endocrinology. Further treatment and workup of the hypokalemia and hypocalcemia can be done by the patient's primary care provider Coding Level of Care Code Est Pt Level 3 (25370) Diagnoses Osteoporosis M81.0
== END 2023-12-02 13:05 | disposition home or self-care (01) ==
PROVIDERS: PCP Internal Medicine; Visit Provider Internal Medicine Endocrinology, Diabetes & Metabolism
DX: M81.0 Age-related osteoporosis without current pathological fracture (principal)
CPT/HCPCS: 99213

== ENCOUNTER → 2023-12-02 12:39 | Outpatient (BNVA) | payer OTHER, SELFPAY | PROVIDERS: PCP Internal Medicine; Visit Provider Internal Medicine Endocrinology, Diabetes & Metabolism | DX: M81.0 Age-related osteoporosis without current pathological fracture (principal) | CPT/HCPCS: 99212 ==

== ENCOUNTER 2024-01-02 09:32 | Outpatient (REF) | payer OTHER, SELFPAY ==
--- NOTE | ~2024-01-02 | US_ITS ---
EXAMINATION: ULTRASOUND RENAL WITH DOPPLER CLINICAL INFORMATION: Uncontrolled hypertension. COMPARISON: None. TECHNIQUE: Real-time grayscale, color Doppler, and duplex Doppler evaluation of the kidneys and renal vasculature was performed. FINDINGS: RENAL MEASUREMENTS: Right: 8.9 x 5.2 x 4.5 cm (Sag x AP x TV) Left: 9.0 x 5.2 x 4.8 cm (Sag x AP x TV) The renal parenchyma appears normal. No hydronephrosis or nephrolithiasis. 1.2 x 1.2 x 1.0 cm cyst with mural calcification or layering milk of calcium measuring 3 mm in thickness in the upper pole the right kidney. DOPPLER INTERROGATION: AORTA: Mid aorta: 75 cm/sec RIGHT MAIN RENAL ARTERY: Proximal: 96 cm/sec Mid: 102 cm/sec Distal: 74 cm/sec LEFT MAIN RENAL ARTERY: Proximal: 56 cm/sec Mid: Not visualized Distal: 65 cm/sec RENAL-AORTIC RATIO (RAR): Right: 1.4 Left: 0.9 SEGMENTAL RESISTIVE INDICES: Right: 0.63-0.67 Left: 0.62-0.70 RENAL VEINS: Right: Patent with normal waveform. Left: Patent with normal waveform. US/US renal BI IMPRESSION: No evidence of hemodynamically significant renal artery stenosis. Small kidneys with normal parenchymal echogenicity and cortical thickness. 1.2 cm indeterminate cyst in the upper pole of the right kidney. Recommend follow-up CT abdomen without and with contrast in 6 months.
--- NOTE | ~2024-01-02 | US_ITS ---
EXAMINATION: ULTRASOUND RENAL WITH DOPPLER CLINICAL INFORMATION: Uncontrolled hypertension. COMPARISON: None. TECHNIQUE: Real-time grayscale, color Doppler, and duplex Doppler evaluation of the kidneys and renal vasculature was performed. FINDINGS: RENAL MEASUREMENTS: Right: 8.9 x 5.2 x 4.5 cm (Sag x AP x TV) Left: 9.0 x 5.2 x 4.8 cm (Sag x AP x TV) The renal parenchyma appears normal. No hydronephrosis or nephrolithiasis. 1.2 x 1.2 x 1.0 cm cyst with mural calcification or layering milk of calcium measuring 3 mm in thickness in the upper pole the right kidney. DOPPLER INTERROGATION: AORTA: Mid aorta: 75 cm/sec RIGHT MAIN RENAL ARTERY: Proximal: 96 cm/sec Mid: 102 cm/sec Distal: 74 cm/sec LEFT MAIN RENAL ARTERY: Proximal: 56 cm/sec Mid: Not visualized Distal: 65 cm/sec RENAL-AORTIC RATIO (RAR): Right: 1.4 Left: 0.9 SEGMENTAL RESISTIVE INDICES: Right: 0.63-0.67 Left: 0.62-0.70 RENAL VEINS: Right: Patent with normal waveform. Left: Patent with normal waveform. US/US renal doppler IMPRESSION: No evidence of hemodynamically significant renal artery stenosis. Small kidneys with normal parenchymal echogenicity and cortical thickness. 1.2 cm indeterminate cyst in the upper pole of the right kidney. Recommend follow-up CT abdomen without and with contrast in 6 months.
== END 2024-01-02 09:33 | disposition home or self-care (01) ==
LOC: HO.US 09:32
PROVIDERS: PCP Internal Medicine; Visit Provider Internal Medicine
DX: I10 Essential (primary) hypertension (principal)
CPT/HCPCS: 76775; 93975

== ENCOUNTER 2024-04-07 13:40 | Outpatient (AMB) | payer OTHER, SELFPAY ==
--- NOTE | 2024-04-07 13:43 | A.OFFPC_ITS ---
Vital Signs 04/07/24 13:45 04/07/24 14:07 Height 4 ft 11 in Weight 96 lb 8 oz BMI 19.5 BP 202/120 H 180/98 H Blood Pressure Location Lt brachial Lt brachial Position Sitting Sitting Intake Visit Reasons: bp Intake Note: Patient here for a follow up BP [employer] Required: No Accompanied by: Self / Same As Patient Allergies No Known Allergies [No Known Allergies*] Allergy (Verified 04/07/24 13:56) Medication List - Last Reconciled 04/07/24 by Vinita Ortiz MD acetaminophen (Tylenol Extra Strength) 1,000 mg (2 x 500 mg) PO QID PRN 30 days amlodipine 10 mg PO DAILY 90 days aspirin 81 mg PO DAILY 90 days atorvastatin 40 mg PO DAILY 90 days buspirone 10 mg PO BID 90 days cetirizine 10 mg PO DAILY chlorthalidone 25 mg PO DAILY 90 days cholecalciferol (vitamin D3) 50 mcg PO DAILY fluoxetine 20 mg PO DAILY 90 days food supplemt, lactose-reduced (Ensure oral liquid) 1 ea PO DAILY 24 days hydralazine 50 mg PO Q8H 30 days lisinopril 40 mg PO DAILY 90 days rmvpgucwdoqn-pwjd-mquuv acid 18-400 mg-mcg 1 tab PO DAILY 90 days potassium chloride ER 20 mEq PO BID 10 days Ventolin HFA 90 mcg/actuation (albuterol sulfate) 2 puffs inhalation Q6H PRN 30 days NS Tobacco use date assessed: 07/30/23 Dental Screening Dental Screen Date: 04/07/24 Did you have a dental visit in the last 12 months?: No Did you have a dental problem in the last 6 months where you did not have access to dental care?: No Was dental information given to patient?: Patient has dentist HPI HPI Comments History of Present Illness Details This is a 63-year-old female with mild major depression and uncontrolled hypertension that comes today for follow-up on her conditions. Depression stable with fluoxetine. Blood pressure still elevated and I will increase hydralazine to 100 mg 3 times a day. She denies any chest pain or shortness on breath. No headaches or dizziness. PFSH Medical History Malnutrition URI (upper respiratory infection) Pure hypercholesterolemia Essential hypertension Asthma Surgical History Hx of tubal ligation Family History Mother Essential hypertension Pure hypercholesterolemia Father No problems noted. Social History Household Members Other:: daughter Housing: Apartment Alcohol intake: former Patient Tobacco Use Status: Never used Tobacco e-Cigarette/Vaping Use: Never Used Second Hand Smoke Exposure: No service: No Current occupational status: disabled Sexual orientation: Straight/Heterosexual Gender identity: Female Cognitive needs: No Hearing needs: No Vision needs: Yes Questionnaire Thrive Questionnaire Date Thrive assessed: 07/30/23 NAM-7 AMB Questionnaire NAM-7 Date NAM - 7 assessed: 07/30/23 Source: Developed by Drs. Kamari Toledo, Edilia Bains, Preston Raymond and colleagues, with an educational rhoda from [employer]. Review of Systems Const All systems reviewed & are unremarkable except as noted in HPI and below Card Denies chest pain at rest, Denies chest pain with activity, Denies edema, Denies irregular heart rhythm, Denies claudication, Denies dyspnea, Denies dyspnea on exertion, Denies orthopnea, Denies paroxysmal nocturnal dyspnea and Denies slow heart rate Resp Denies cough, Denies dyspnea and Denies dyspnea on exertion GI Denies abdominal pain, Denies change in bowel habits, Denies excessive flatus, Denies nausea and Denies vomiting Physical exam (Primary Care) Vital Signs: Last Vital Signs BP 180/98 H 04/07/24 14:07 BMI result Body Mass Index 19.5 BMI Assessment/Plan discussion: Low BMI Low, Plan discussed: lifestyle, increase calorie intake and dietary Tobacco/Smoking Status: Tobacco use Status Tobacco use date assessed 07/30/23 04/07/24 13:43 Patient Tobacco Use Status Never used Tobacco 04/07/24 13:43 e-Cigarette/Vaping Use Never Used 04/07/24 13:43 Thrive Assessment: Date of Thrive Assessment Date Thrive assessed 07/30/23 04/07/24 13:43 Resp Effort & Inspection: normal respiratory effort Auscultation: clear to auscultation bilaterally Cardio Jugular venous distension: no JVD Rate: regular rate Rhythm: regular rhythm Heart sounds: S1 normal heart sound present and S2 normal heart sound present Extrem General: Yes full ROM Assessment and Plan Assessment & Plan (1) Uncontrolled hypertension: Code(s): I10 - Essential (primary) hypertension Plan: Continue amlodipine and lisinopril. Increase hydralazine to 100 mg 3 times a day. Recheck blood pressure with nurse navigator in 3 weeks. Blood pressure goal is equal or less than 130/80. Continue chlorthalidone. (2) Mild major depression: Code(s): F32.0 - Major depressive disorder, single episode, mild Plan: Continue fluoxetine. Medications: New hydralazine 100 mg PO TID 90 days 270 tabs 1RF Refilled cholecalciferol (vitamin D3) 50 mcg PO DAILY 30 caps 5RF chlorthalidone 25 mg PO DAILY 90 days 90 tabs 1RF I10 - Essential (primary) hypertension buspirone 10 mg PO BID 90 days 180 tabs 0RF atorvastatin 40 mg PO DAILY 90 days 90 tabs 3RF lisinopril 40 mg PO DAILY 90 days 90 tabs 3RF fluoxetine 20 mg PO DAILY 90 days 90 caps 1RF amlodipine 10 mg PO DAILY 90 days 90 tabs 3RF aspirin 81 mg PO DAILY 90 days 90 tabs 1RF Discontinued hydralazine Discontinued Reason: Patient Completed Course 50 mg PO Q8H 30 days 270 tabs 0RF Coding Level of Care Code Est Pt Level 3 (12262) Complex EM visit Add On G2211 Diagnoses Uncontrolled hypertension I10 Mild major depression F32.0 Time Spent (min) 19
[2024-04-07 13:45] VITALS: BP 202/120; BMI 19.5
[2024-04-07 14:07] VITALS: BP 180/98
== END 2024-04-07 14:12 | disposition home or self-care (01) ==
PROVIDERS: PCP Internal Medicine; Visit Provider Internal Medicine
DX: I10 Essential (primary) hypertension (principal); F32.0 Major depressive disorder, single episode, mild

== ENCOUNTER → 2024-04-07 13:40 | Outpatient (BNVA) | payer OTHER, SELFPAY | PROVIDERS: PCP Internal Medicine; Visit Provider Internal Medicine | DX: I10 Essential (primary) hypertension (principal); F32.0 Major depressive disorder, single episode, mild | CPT/HCPCS: 99212 ==

== ENCOUNTER 2024-11-23 09:27 | Emergency (ER) | payer OTHER, SELFPAY ==
[2024-11-23] VITALS (13 sets, daily range): BP systolic 101–248; BP diastolic 52–118; PULSE 65–84; RESP 16–21; TEMP 36.9–37.2; O2SAT 95–98; BMI 25.0
--- NOTE | ~2024-11-23 | XR_ITS ---
EXAMINATION: XR HAND, RIGHT XR FINGER RT 2V CLINICAL INFORMATION: lump on thumb joint COMPARISON: None available. TECHNIQUE: PA, lateral, and oblique views of the right hand. Lateral and oblique views of the right thumb. FINDINGS: No fracture, dislocation, or suspicious bone lesion. There is normal alignment. Moderate degenerative arthritis present at the first CMC joint, and first MCP joint, with mild associated spurring. Remainder of the MCP joints appear normal. Mild degenerative arthritis seen throughout the DIP joints, and interphalangeal joint of the thumb. The PIP joints appear normal. No evidence of erosive arthritis. Soft tissue prominence noted just lateral to the carpal rows, uncertain etiology. XR/XR hand RT 2V IMPRESSION: 1. No acute bony abnormalities of the right hand or thumb. Osteoarthritic changes as detailed. 2. Soft tissue prominence noted just lateral (radial) to the carpal rows, uncertain etiology. Electronically signed by: Brandon Coker MD 11/23/2024 10:34 AM EDT
--- NOTE | ~2024-11-23 | XR_ITS ---
EXAMINATION: XR HAND, RIGHT XR FINGER RT 2V CLINICAL INFORMATION: lump on thumb joint COMPARISON: None available. TECHNIQUE: PA, lateral, and oblique views of the right hand. Lateral and oblique views of the right thumb. FINDINGS: No fracture, dislocation, or suspicious bone lesion. There is normal alignment. Moderate degenerative arthritis present at the first CMC joint, and first MCP joint, with mild associated spurring. Remainder of the MCP joints appear normal. Mild degenerative arthritis seen throughout the DIP joints, and interphalangeal joint of the thumb. The PIP joints appear normal. No evidence of erosive arthritis. Soft tissue prominence noted just lateral to the carpal rows, uncertain etiology. XR/XR finger RT min 2V IMPRESSION: 1. No acute bony abnormalities of the right hand or thumb. Osteoarthritic changes as detailed. 2. Soft tissue prominence noted just lateral (radial) to the carpal rows, uncertain etiology. Electronically signed by: Brandon Coker MD 11/23/2024 10:34 AM EDT
--- NOTE | 2024-11-23 13:04 | ECG_ITS ---
Test Reason : HTN Blood Pressure : */* mmHG Vent. Rate : 65 BPM Atrial Rate : 65 BPM P-R Int : 142 ms QRS Dur : 82 ms QT Int : 434 ms P-R-T Axes : 46 38 84 degrees QTcB Int : 451 ms Normal sinus rhythm Minimal voltage criteria for LVH, may be normal variant ( Sokolow-Morrison ) Nonspecific ST and T wave abnormality Abnormal ECG When compared with ECG of 15-Jul-2023 14:23, No significant change was found Referred By: Diamond Solorzano Electronically Signed By: JAYCE RAMIREZ
[2024-11-23] MEDS: hydrALAZINE HCl 50 MG TABLET 100 MG PO (13:28)
[2024-11-23] MEDS: lisinopriL 40 MG TABLET PO (13:28)
[2024-11-23] MEDS: amLODIPine Besylate 10 MG TABLET PO (13:29)
[2024-11-23 13:34] LABS: MANUAL DIFF FLAG NO
[2024-11-23 13:37] LABS: Basophils Absolute Auto 0.1 X10*3/uL (0.0-0.2); Basophils Percent Auto 1.1 % (0-2); Eosinophils Absolute Auto 0.1 X10*3/uL (0.0-0.4); Eosinophils Percent Auto 1.1 % (0-4); Hematocrit 38.5 % (37.0-47.0); Hemoglobin 12.8 g/dl (12.0-16.0); Imm Gran Abs Auto 0.02 X10*3/uL (0.00-0.03); Imm Gran Pct Auto 0.3 % (0.0-0.4); Lymphocytes Absolute Auto 2.3 X10*3/uL (1.2-4.9); Lymphocytes Percent Auto 36.2 % (20-40); Mean Corpuscular HGB Conc 33.2 g/dl (31.0-35.0); Mean Corpuscular Hemoglobin 29.8 pg (27.0-33.0); Mean Corpuscular Volume 89.5 fL (80.0-98.0); Mean Platelet Volume 10.4 fL (9.4-12.3); Monocytes Absolute Auto 0.5 X10*3/uL (0.1-1.2); Monocytes Percent Auto 7.4 % (2-11); Neutrophils Absolute Auto 3.4 x10*3/uL (2.0-8.3); Neutrophils Percent Auto 53.9 % (45-73); Platelet Count 247 X10*3/uL (160-400); Red Cell Distribution Width 11.8 % (11.0-16.0); White Blood Count 6.3 X10*3/uL (4.8-10.8)
[2024-11-23 13:50] LABS: Anion Gap 13 (12-20); Blood Urea Nitrogen 21 mg/dL (9-16); C Reactive Protein < 0.10 mg/dL (< or = 0.50); Calcium 9.1 mg/dL (8.4-10.2); Carbon Dioxide 24 mmol/L (22-29); Chloride 109 mmol/L (96-108); Creatinine Clr Calc Pharmacy 57.8; Estimated Glomerular Filt Rate > 60; Glucose Random 90 mg/dL (60-115); Potassium 4.5 mmol/L (3.3-5.1); Sodium 141 mmol/L (135-145)
[2024-11-23 13:58] LABS: Troponin-I High Sensitivity 2.8 ng/L (<3.5-17.0)
--- NOTE | 2024-11-23 15:51 | ED_ITS ---
HPI - Extremity Problem General Chief complaint: Extremity Injury, Upper Stated complaint: Lump R arm Time Seen by Provider: 11/23/24 13:03 Source: patient, RN notes reviewed and old records reviewed Mode of arrival: ambulatory History of Present Illness ED Provider: Diamond Solorzano PA-C HPI Narrative: 64-year-old female with a past medical history uncontrolled hypertension, NAM, HLD, presenting to the ED complaining of painless lump to right thumb x1 week. Denies known injury, trauma, fall, drainage, numbness/tingling or weakness. Denies taking antihypertensives this morning, states he has been out of medication x3 days, has not yet picked up from the pharmacy. Denies headache, vision change or loss, CP/SOB, numbness, tingling, weakness Related Data Previous Rx's ?Medication ?Instructions ?Recorded multivitamin-ferrous 1 tab PO DAILY 90 days #90 tabs 09/02/22 fumarate-folic acid 18 mg-400 mcg tablet food supplemt, lactose-reduced 1 ea PO DAILY 24 days #5,688 mL 03/03/23 (Ensure oral liquid) potassium chloride 20 mEq 20 meq PO BID 10 days #20 tabs 12/02/23 tablet,extended release Ventolin HFA 90 mcg/actuation 2 puff inhalation Q6H PRN 02/10/24 aerosol inhaler (albuterol sulfate) shortness of breath or wheezing 30 days #8 grams acetaminophen 500 mg tablet 1,000 mg (2 x 500 mg) PO QID PRN 02/10/24 (Tylenol Extra Strength) fever or pain 30 days #120 tabs cetirizine 10 mg tablet 10 mg PO DAILY #30 tabs 02/10/24 amlodipine 10 mg tablet 10 mg PO DAILY 90 days #90 tabs 04/07/24 aspirin 81 mg tablet,delayed 81 mg PO DAILY 90 days #90 tabs 04/07/24 release atorvastatin 40 mg tablet 40 mg PO DAILY 90 days #90 tabs 04/07/24 buspirone 10 mg tablet 10 mg PO BID 90 days #180 tabs 04/07/24 chlorthalidone 25 mg tablet 25 mg PO DAILY 90 days #90 tabs 04/07/24 cholecalciferol (vitamin D3) 50 50 mcg PO DAILY #30 caps 04/07/24 mcg (2,000 unit) capsule fluoxetine 20 mg capsule 20 mg PO DAILY 90 days #90 caps 04/07/24 hydralazine 100 mg tablet 100 mg PO TID 90 days #270 tabs 04/07/24 lisinopril 40 mg tablet 40 mg PO DAILY 90 days #90 tabs 04/07/24 Allergies Allergy/AdvReac Type Severity Reaction Status Date / Time No Known Allergies Allergy Verified 11/23/24 09:41 [No Known Allergies*] Review of Systems 2 Review of Systems: Yes all other systems are reviewed and are negative Constitutional: Constitutional: Reports as per HPI Neurologic: Denies Abnormal speech present [facility] Past Medical History Attestation statement: The following information was validated with the patient. Source: old records reviewed Medical History Malnutrition URI (upper respiratory infection) Pure hypercholesterolemia Essential hypertension Asthma Surgical History Hx of tubal ligation Family History Family History Mother Essential hypertension Pure hypercholesterolemia Father No problems noted. Social History Social History Household Members Other:: daughter Housing: Apartment Alcohol intake: former Patient Tobacco Use Status: Never used Tobacco e-Cigarette/Vaping Use: Never Used Second Hand Smoke Exposure: No Advance Directives: No Advance Directives Information Provided: Yes service: No Current occupational status: disabled Sexual orientation: Straight/Heterosexual Gender identity: Female Cognitive needs: No Hearing needs: No Vision needs: Yes Physical Exam 2 Vital Signs: Vital Signs: Last Vital Signs Temp 98.9 F 11/23/24 09:41 Pulse 84 11/23/24 14:02 Resp 16 11/23/24 14:02 BP 101/52 L 11/23/24 14:25 Pulse Ox 95 11/23/24 14:02 O2 Del Method Room Air 11/23/24 14:02 BMI result Body Mass Index 25.0 Const: General: cooperative, healthy appearing and no acute distress O rientation/consciousness: patient oriented x3 Limitations: no limitations HEENT: Head: Yes normal to inspection and Yes atraumatic Ears: hearing grossly normal bilaterally General nose exam: Normal external nose present Face and sinus: Yes normal facial exam Mouth: Normal oral and palatal mucosa present Throat: Yes posterior oropharynx normal Eyes: General: appearance normal, both eyes and all related structures P upils: Equal, round and reactive pupils present EOM: EOMs intact bilaterally Neck: Neck: Yes normal visual inspection and Yes no meningeal signs Resp: Effort & Inspection: normal respiratory effort and no respiratory distress Auscultation: clear to auscultation bilaterally Cardio: Rate: regular rate Heart sounds: S1 normal heart sound present and S2 normal heart sound present GI: Inspection: Yes normal to inspection Palpation (GI): Soft to palpation, nontender, no guarding and not rigid Skin: Rashes: no rashes Wounds: no wounds Neuro: General: patient oriented x3, gait normal, tone normal, moves all extremities, no meningeal signs, no focal motor deficits and CN's II-XI intact bilaterally Cranial nerves: Yes CN's II-XII intact bilaterally, Yes Equal, round and reactive pupils present and Yes Bilaterally intact EOM present C ognition (Neuro): normal cognition Speech: No Abnormal speech present Gait exam (Neuro): Normal gait present Motor exam (neuro): 5/5 motor strength present throughout Extrem: Other: Skin colored lump/cyst noted to base of 1st metacarpal/wrist. Skin colored. Nontender, mobile, no fluctuance or induration. No streaking. No warmth. Full range of motion intact to digits and wrist. Neurovascularly intact. General: Yes normal to inspection Course Course Course Narrative: 1603--labs reassuring. Troponin negative. XR finger RT min 2V IMPRESSION: 1. No acute bony abnormalities of the right hand or thumb. Osteoarthritic changes as detailed. 2. Soft tissue prominence noted just lateral (radial) to the carpal rows, uncertain etiology. XR hand RT 2V IMPRESSION: 1. No acute bony abnormalities of the right hand or thumb. Osteoarthritic changes as detailed. 2. Soft tissue prominence noted just lateral (radial) to the carpal rows, uncertain etiology. > compression Ricardo wrap applied to assist -patient's blood pressure improved to 197/92 followed by 101/52 after home dose of medications given. Safe for discharge home at this time. States she has prescription refills in the pharmacy Results discussed with patient including worrisome signs and symptoms and strict return precautions, and when to return to the emergency department. They verbalized understanding and feel safe for discharge at this time. Medications Administered Discontinued Medications Generic Name Dose Route Start Last Admin Trade Name Jaki PRN Reason Stop Dose Admin Amlodipine Besylate 10 mg 11/23/24 13:17 11/23/24 13:29 Amlodipine Besylate 10 Mg Tablet PO 11/23/24 13:18 10 mg ONCE ONE Administration Protocol Hydralazine HCl 100 mg 11/23/24 13:17 11/23/24 13:28 Hydralazine Hcl 50 Mg Tablet PO 11/23/24 13:18 100 mg ONCE ONE Administration Protocol Lisinopril 40 mg 11/23/24 13:17 11/23/24 13:28 Lisinopril 40 Mg Tablet PO 11/23/24 13:18 40 mg ONCE ONE Administration Protocol Medical Decision Making Medical Decision Making [facility] Narrative: 64-year-old female with a past medical history uncontrolled hypertension, NAM, HLD, presenting to the ED complaining of painless lump to right thumb x1 week. On exam hypertensive 232/118, has been out of BP medication x3 days. Physical exam otherwise noted as above consistent with suspected cyst. Low suspicion for abscess. No evidence of cellulitis or septic joint. Concern for uncontrolled hypertension due to medication noncompliance. Rule out hypertensive urgency/emergency. Low suspicion for ICH or ACS Per chart review patient takes amlodipine, hydralazine and lisinopril which she confirms Plan: EKG, labs, home BP medication, re-evaluate, x-ray ordered in triage Please refer to course for remaining clinical decision making, interpretation of labs/imaging results, and discussions with consultants and/or family members. Differential Diagnosis Differential Diagnoses: The differential diagnosis associated with the presentation includes As above Admission/Observation Consideration of admission/observation: Escalation of care including admission/observation considered Lab Data [facility] Lab Attestation statement: I reviewed the patient's lab results. 11/23/24 13:28 11/23/24 13:28 Labs: Lab Results 11/23/24 11/23/24 Range/Units 13:27 13:28 WBC 6.3 (4.8-10.8) X10*3/uL RBC 4.30 (4.20-5.50) X10*6/uL Hgb 12.8 (12.0-16.0) g/dl Hct 38.5 (37.0-47.0) % MCV 89.5 (80.0-98.0) fL MCH 29.8 (27.0-33.0) pg MCHC 33.2 (31.0-35.0) g/dl RDW 11.8 (11.0-16.0) % Plt Count 247 (160-400) X10*3/uL MPV 10.4 (9.4-12.3) fL Immature Gran % (Auto) 0.3 (0.0-0.4) % Neut % (Auto) 53.9 (45-73) % Lymph % (Auto) 36.2 (20-40) % Mclennan % (Auto) 7.4 (2-11) % Eos % (Auto) 1.1 (0-4) % Baso % (Auto) 1.1 (0-2) % Lymph # (Auto) 2.3 (1.2-4.9) X10*3/uL Mclennan # (Auto) 0.5 (0.1-1.2) X10*3/uL Eos # (Auto) 0.1 (0.0-0.4) X10*3/uL Baso # (Auto) 0.1 (0.0-0.2) X10*3/uL Abs Immat Gran (auto) 0.02 (0.00-0.03) X10*3/uL Absolute Neuts (auto) 3.4 (2.0-8.3) x10*3/uL Absolute Nucleated RBC 0.000 (0.0-0.012) X10*3/uL Nucleated RBC % (auto) 0.0 (0.0-0.2) /100WBC ESR 10 (0-20) MM/HR Sodium 141 (135-145) mmol/L Potassium 4.5 (3.3-5.1) mmol/L Chloride 109 H (96-108) mmol/L Carbon Dioxide 24 (22-29) mmol/L Anion Gap 13 (12-20) BUN 21 H (9-16) mg/dL Creatinine 0.77 (0.5-1.4) mg/dL Estim Creat Clear Calc 57.8 Estimated GFR > 60 Random Glucose 90 (60-115) mg/dL Calcium 9.1 D (8.4-10.2) mg/dL Troponin I High Sens 2.8 (<3.5-17.0) ng/L C-Reactive Protein < 0.10 (< or = 0.50) mg/dL Independent Interpretation I performed an independent interpretation of an: EKG (My interpretation EKG normal sinus rhythm rate of 65. FL interval 142. QTC 451. No significant change when compared to prior. No STEMI ) and Plain X-Ray Radiology Impression Discussion of test interpretation with radiology: I have reviewed the radiologist's reading. Independent Historian Clinical information obtained from an independent historian. History obtained from or confirmed by: Other External Record Review External record reviewed: Inpatient record, Office record, Outpatient record, Prior outpatient labs, Prior outpatient radiology, Primary care record and Outside ED record Tests considered The following testing was considered but not selected: As above Prescription Management I considered prescription management with: Pain Medication and Antibiotic Chronic Conditions Patient?s care impacted by: Other Social Determinants Patient?s care significantly limited by Social Determinants of Health including: Other Social Determinant of Health Critical Care Time Critical Care Time Critical Care Time: Yes Total Critical Care Time: 35 Attestation: I have personally provided critical care time exclusive of time spent on separately billable procedures. Time includes review of lab data, radiology results, discussion with consultants, and monitoring for potential decompensation. Intervention performed as documented. Discharge Plan Discharge Clinical Impression: Cyst of skin, Hypertension Patient Disposition: Home, Self-Care Instructions: Hypertension (ED), Cyst (ED) Additional Instructions: IT IS VERY IMPORTANT FOR YOU TO MONITOR YOUR BLOOD PRESSURE CLOSELY AT HOME. YOU NEED TO TAKE YOUR BLOOD PRESSURE MEDICATION, DO NOT MISS ANY DOSES. PICK THEM UP FROM THE PHARMACY. If you develop any headache, chest pain, lightheadedness/dizziness, weakness, vision change or loss return to the ED immediately You likely have a cyst on your hand/wrist, please follow-up with framing specialist as needed If area begins look infected, is red, there is pus drainage, you have fever, or is painful/you are not able to move your fingers or wrist return to the ED Wear Ricardo wrap for compression Prescriptions: No Action nrwkypxjynky-zcpr-ulbrv acid 18-400 mg-mcg tablet 1 tab PO DAILY 90 Days Qty: 90 1RF Ensure Liquid 1 ea PO DAILY 24 Days Qty: 5688 6RF potassium chloride 20 mEq tablet extended release 20 meq PO BID 10 Days Qty: 20 0RF acetaminophen [Tylenol Extra Strength] 500 mg tablet 1,000 mg PO QID PRN (Reason: fever or pain) 30 Days Qty: 120 1RF cetirizine 10 mg tablet 10 mg PO DAILY Qty: 30 3RF albuterol sulfate [Ventolin HFA] 90 mcg/actuation HFA aerosol inhaler 2 puff inhalation Q6H PRN (Reason: shortness of breath or wheezing) 30 Days Qty: 8 1RF lisinopril 40 mg tablet 40 mg PO DAILY 90 Days Qty: 90 3RF fluoxetine 20 mg capsule 20 mg PO DAILY 90 Days Qty: 90 1RF cholecalciferol (vitamin D3) 50 mcg (2,000 unit) capsule 50 mcg PO DAILY Qty: 30 5RF chlorthalidone 25 mg tablet 25 mg PO DAILY 90 Days Qty: 90 1RF amlodipine 10 mg tablet 10 mg PO DAILY 90 Days Qty: 90 3RF aspirin 81 mg tablet,delayed release (DR/EC) 81 mg PO DAILY 90 Days Qty: 90 1RF buspirone 10 mg tablet 10 mg PO BID 90 Days Qty: 180 0RF atorvastatin 40 mg tablet 40 mg PO DAILY 90 Days Qty: 90 3RF hydralazine 100 mg tablet 100 mg PO TID 90 Days Qty: 270 1RF [place] [facility] [facility] [place] [facility] [place] Group] - 1 week Vinita Sykes MD [Primary Care Provider] - 3 days Print Language: Qatari
[2024-11-23 16:04] LABS: Erythrocyte Sedimentation Rate 10 MM/HR (0-20)
== END 2024-11-23 16:20 | disposition home or self-care (01) ==
PROVIDERS: Physician Assistant; Emergency Provider Emergency Medicine Emergency Medical Services; PCP Internal Medicine
DX: L72.9 Follicular cyst of the skin and subcutaneous tissue, unspecified (principal); I10 Essential (primary) hypertension; Z79.899 Other long term (current) drug therapy
CPT/HCPCS: 36415; 73120; 73140; 80048; 84484; 85025; 85652; 86140; 93005; 99283; 99284

== ENCOUNTER → 2024-11-23 10:06 | Outpatient (BNV) | payer OTHER, SELFPAY | PROVIDERS: PCP Internal Medicine; Visit Provider Radiology Diagnostic Radiology | DX: R22.31 Localized swelling, mass and lump, right upper limb (principal) | CPT/HCPCS: 73120; 73140 ==

== ENCOUNTER → 2024-11-23 13:04 | Outpatient (BNV) | payer OTHER, SELFPAY | PROVIDERS: Emergency Provider Emergency Medicine Emergency Medical Services; PCP Internal Medicine; Visit Provider Internal Medicine | DX: R94.31 Abnormal electrocardiogram [ECG] [EKG] (principal); I10 Essential (primary) hypertension | CPT/HCPCS: 93010 ==

== ENCOUNTER 2025-03-15 09:42 | Emergency (ER) | payer OTHER, SELFPAY ==
--- NOTE | ~2025-03-15 | CT_ITS ---
EXAMINATION: CT HEAD WITHOUT CONTRAST CLINICAL INFORMATION: Vertigo COMPARISON: September 04, 2021 TECHNIQUE: Contiguous axial imaging was performed from the skull base to vertex without intravenous administration of contrast. This CT examination was performed using dose optimization techniques as appropriate, variously including the following: *Automated exposure control *Adjustment of mA and/or kV according to patient size (this includes techniques or standardized protocols for targeted exams where dose is matched to indication/reason for exam; i.e. extremities or head) *Use of iterative reconstruction technique DLP: 508 mGY*cm FINDINGS: There is no acute ischemic change. There is no intracranial hemorrhage. There is no mass-effect or midline shift. Basal cisterns and ventricles are within normal limits for age/cerebral volume. Orbits are symmetrical and unremarkable. Paranasal sinuses and mastoid air cells are pneumatized. There are no bony abnormalities. CT/CT Head for ICH IMPRESSION: No acute intracranial abnormality. Electronically signed by: Camilo Heller MD 03/15/2025 01:27 PM EDT
[2025-03-15 10:10] VITALS: BP 240/117; PULSE 79; RESP 16; TEMP 37; O2SAT 97; BMI 24.4
[2025-03-15 10:36] VITALS: BP 230/119; PULSE 69; RESP 15; O2SAT 98
--- NOTE | 2025-03-15 10:39 | ECG_ITS ---
Test Reason : DIZZINESS Blood Pressure : */* mmHG Vent. Rate : 72 BPM Atrial Rate : 72 BPM P-R Int : 142 ms QRS Dur : 82 ms QT Int : 418 ms P-R-T Axes : 53 42 106 degrees QTcB Int : 457 ms Normal sinus rhythm Left ventricular hypertrophy with repolarization abnormality ( Sokolow-Morrison , Romhilt-Waters ) Abnormal ECG When compared with ECG of 23-Nov-2024 13:13, No significant change was found Referred By: Generic ED Physician Electronically Signed By:
--- NOTE | 2025-03-15 11:15 | ECG_ITS ---
Test Reason : DIZZINESS Blood Pressure : */* mmHG Vent. Rate : 72 BPM Atrial Rate : 72 BPM P-R Int : 142 ms QRS Dur : 82 ms QT Int : 418 ms P-R-T Axes : 53 42 106 degrees QTcB Int : 457 ms Normal sinus rhythm Left ventricular hypertrophy with repolarization abnormality ( Sokolow-Morrison , Romhilt-Waters ) Abnormal ECG When compared with ECG of 23-Nov-2024 13:13, No significant change was found Referred By: Erna Stewart Electronically Signed By: JAYCE RAMIREZ
[2025-03-15 11:16] LABS: MANUAL DIFF FLAG NO
[2025-03-15 11:17] LABS: Hematocrit 39.4 % (37.0-47.0); Hemoglobin 13.0 g/dl (12.0-16.0); Imm Gran Abs Auto 0.02 X10*3/uL (0.00-0.03); Imm Gran Pct Auto 0.3 % (0.0-0.4); Lymphocytes Absolute Auto 1.5 X10*3/uL (1.2-4.9); Mean Corpuscular HGB Conc 33.0 g/dl (31.0-35.0); Mean Corpuscular Hemoglobin 29.9 pg (27.0-33.0); Mean Corpuscular Volume 90.6 fL (80.0-98.0); NRBC Abs Auto 0.000 X10*3/uL (0.0-0.012); NRBC Pct Auto 0.0 /100WBC (0.0-0.2); Platelet Count 271 X10*3/uL (160-400); Red Blood Count 4.35 X10*6/uL (4.20-5.50); White Blood Count 7.6 X10*3/uL (4.8-10.8)
[2025-03-15 11:31] LABS: Anion Gap 13 (12-20); Blood Urea Nitrogen 17 mg/dL (9-16); Calcium 9.5 mg/dL (8.4-10.2); Carbon Dioxide 26 mmol/L (22-29); Chloride 108 mmol/L (96-108); Creatinine Clr Calc Pharmacy 41.5; Estimated Glomerular Filt Rate > 60; Potassium 5.3 mmol/L (3.3-5.1); Sodium 142 mmol/L (135-145)
--- OUTSIDE RECORDS SUMMARY | 2025-03-15 11:32 | XMS_ITS | Clinical Summary ---
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 5 Active amLODIPine (Norvasc) 10 MG tablet Take 1 tablet by mouth Once per day. 5 Active Ventolin HFA 108 (90 Base) MCG/ACT inhaler INHALE 2 PUFFS BY MOUTH EVERY 6 HOURS NEEDED FOR SHORTNESS OF BREATH OR WHEEZING FOR 30 DAYS 5 Active Encounters Date Type Department Care Team Description 03/15/2025 Travel from Last 3 Months Social History Tobacco Use Types Packs/Day Years Used Date Smoking Tobacco: Never Assessed Comments Unknown Sex and Gender Information Value Date Recorded Sex Assigned at Female 05/20/2022 10:17 AM EDT Legal Sex Female 10:17 AM EDT Gender Identity Female 01/26/2025 12:09 PM EDT Sexual Orientation Not on file Plan of Treatment Health Maintenance Due Date Last Done Comments CT Colonography 1962 Colonoscopy 1962 Colorectal Cancer Screening 1962 Depression Screening 1962 FIT DNA/Cologuard 1962 FIT 1962 FOBT 1962 Sigmoidoscopy 1962 Disability Screening 1962 Alcohol/Substance Use Screening 1974 Tobacco Screening 1974 DTaP/Tdap/Td Vaccines (1 - Tdap) 1981 Pap Smear 1983 Cervical Cancer Screening 1992 HPV/Cotest 1992 Mammogram 2002 Pneumococcal Vaccine: 50+ Ye ars (1 of 1 - PCV) 2012 Zoster Vaccines (1 of 2) 2012 COVID-19 Vaccine (1 - 2023-2 5 season) 2024 Influenza Vaccine (#1) 2025 RSV Patients and Pa tients Aged 60 years or older (1 - 1-dose 75+ series) 2037 HIB Vaccines Aged Out No longer eligi ble based on patient's age to complete this topic HPV Vaccines Aged Out No longer eligi ble based on patient's age to complete this topic Hepatitis A Vaccines Aged Out No long er eligible based on patient's age to complete this topic Hepatitis B Vaccines Aged Out No long er eligible based on patient's age to complete this topic IPV Vaccines Aged Out No longer eligi ble based on patient's age to complete this topic Meningococcal B Vaccine Aged Out No l onger eligible based on patient's age to complete this topic Meningococcal Vaccine Aged Out No aarti jen eligible based on patient's age to complete this topic RSV under 20 months Aged Out No longe r eligible based on patient's age to complete this topic Rotavirus Vaccines Aged Out No longer eligible based on patient's age to complete this topic
--- OUTSIDE RECORDS SUMMARY | 2025-03-15 11:32 | XMS_ITS | Encounter Summary ---
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 Phone Unavailable Primary Care Provider Unavailabl e Encounter Details Date Type Department Care Team (Latest Contact Info) Description 03/15/2025 Travel Social History Tobacco Use Types Packs/Day Years Used Date Smoking Tobacco: Never Assessed Comments Unknown Sex and Gender Information Value Date Recorded Sex Assigned at Female 05/20/2022 10:17 AM EDT Legal Sex Female 10:17 AM EDT Gender Identity Female 01/26/2025 12:09 PM EDT Sexual Orientation Not on file documented as of this encounter Plan of Treatment Not on file documented as of this encounter Visit Diagnoses Not on filedocumented in this encounter
[2025-03-15 11:41] LABS: Troponin-I High Sensitivity < 2.7 ng/L (<3.5-17.0)
--- NOTE | 2025-03-15 11:54 | ED_ITS ---
HPI - Dizziness General Chief Complaint: Dizziness Stated Complaint: Vertigo Time Seen by Provider: 03/15/25 11:06 History of Present Illness HPI Narrative: Patient is a 64-year-old female presents today with having 2 day history of vertigo. Patient claims that she has been out of her dizzy medication. Normally takes it and it makes it much better. Also has a history of hypertension. Did not take her medication this morning. I reviewed patient's previous record including clinic record patient is on amlodipine 10 mg. On hydralazine 100 mg t.i.d.. Also on lisinopril 40 mg daily. Patient did not take any of her medications. Denies any focal weakness. Denies any chest pain. Denies any diaphoresis denies any leg swelling patient is from home. Patient claims that the dizziness is more of a lightheadedness. It is not made worse with position. Not associated with any coughing congestion upper respiratory symptoms. There is no headache associated with it. She is from home. Related Data Previous Rx's ?Medication ?Instructions ?Recorded multivitamin-ferrous 1 tab PO DAILY 90 days #90 t abs 09/02/22 fumarate-folic acid 18 mg-400 mcg tablet food supplemt, lactose-reduced 1 ea PO DAILY 24 days # 5,688 mL 03/03/23 (Ensure oral liquid) potassium chloride 20 mEq 20 meq PO BID 10 days #20 ta bs 12/02/23 tablet,extended release acetaminophen 500 mg tablet 1,000 mg (2 x 500 mg) PO Q ID PRN 02/10/24 (Tylenol Extra Strength) fever or pain 30 days #120 t abs aspirin 81 mg tablet,delayed 81 mg PO DAILY 90 days #9 0 tabs 04/07/24 release atorvastatin 40 mg tablet 40 mg PO DAILY 90 days #90 t abs 04/07/24 buspirone 10 mg tablet 10 mg PO BID 90 days #180 ta bs 04/07/24 chlorthalidone 25 mg tablet 25 mg PO DAILY 90 days #90 tabs 04/07/24 cholecalciferol (vitamin D3) 50 50 mcg PO DAILY #30 ca ps 04/07/24 mcg (2,000 unit) capsule fluoxetine 20 mg capsule 20 mg PO DAILY 90 days #90 c aps 04/07/24 hydralazine 100 mg tablet 100 mg PO TID 90 days #270 t abs 04/07/24 lisinopril 40 mg tablet 40 mg PO DAILY 90 days #90 t abs 04/07/24 Ventolin HFA 90 mcg/actuation 2 puff inhalation Q6H CO N 11/24/24 aerosol inhaler (albuterol sulfate) shortness of breat h or wheezing 30 days #8 grams amlodipine 10 mg tablet 10 mg PO DAILY 90 days #90 t abs 11/24/24 cetirizine 10 mg tablet 10 mg PO DAILY #30 tabs 11/19 04/14 Allergies Allergy/AdvReac Type Severity Reaction Status Date / Time No Known Allergies (No Known Allergy Verified 03/15/25 10:15 Allergies*) Review of Systems 2 Review of Systems: Positive dizziness Yes all other systems are reviewed and are negative PMFSH Past Medical History Attestation statement: The following information was validated with the patient. Medical History Malnutrition URI (upper respiratory infection) Pure hypercholesterolemia Essential hypertension Asthma Surgical History Hx of tubal ligation Family History Family History Mother Essential hypertension Pure hypercholesterolemia Father No problems noted. Social History Social History Household Members Other:: daughter Housing: Apartment Alcohol intake: former Patient Tobacco Use Status: Never used Tobacco Smoked in Last 30 Days: No e-Cigarette/Vaping Use: Never Used Second Hand Smoke Exposure: No Use of substances other than those prescribed or required for medical reasons: No Advance Directives: No Advance Directives Information Provided: Yes service: No Current occupational status: disabled Sexual orientation: Straight/Heterosexual Gender identity: Female Cognitive needs: No Hearing needs: No Vision needs: Yes Physical Exam 2 Exam: Exam: Appearance: Alert. Oriented X3. No acute distress. Eyes: Pupils equal, round and reactive to light. ENT: Pharynx normal. Neck: Normal inspection. Neck supple. No lymph nodes noted. No crepitus CVS: Normal heart rate and rhythm. Pulses normal. Normal S1 and S2 Respiratory: No respiratory distress. Breath sounds normal. No Wheezing. No rales Abdomen: Soft and nontender. No rigidity. No distention. good BS x4 Skin: Skin warm and dry. Normal skin color. Normal skin turgor. Extremities: No lower extremity edema. Neurovascular intact to all extremities. No Lacerations. No Rash Neuro: Oriented X 3. No motor deficit. No sensory deficit. Moving all extermities. No slurred speech Vital Signs: Vital Signs: Last Vital Signs Temp 98.6 F 03/15/25 10:10 Pulse 73 03/15/25 13:31 Resp 16 03/15/25 13:31 BP 177/101 H 03/15/25 13:31 Pulse Ox 98 03/15/25 10:36 O2 Del Method Room Air 03/15/25 10:36 BMI result Body Mass Index 24.4 NIH Stroke Scale Internal: Initial- Upon Arrival Time: 11:56 Level of Consciousness: Alert Level of Consciousness Questions: Answers both questions correctly Level of Consciousness Commands: Performs both tasks correctly Best Gaze: Normal Visual: No visual loss Facial Palsy: Normal Motor Arm (Right): No drift Motor Arm (Left): No drift Motor Leg (Right): No drift Motor Leg (Left): No drift Limb Ataxia: Absent Sensory: Normal Best Language: No aphasia Dysarthia: Normal Extinction and Inattention: No abnormality Score: 0 Medications Administered Discontinued Medications Generic Name Dose Route Start Last Admin Trade Name Freq PRN Reason Stop Dose Admin Amlodipine Besylate 10 mg 03/15/25 11:45 03/15/25 12:10 Amlodipine Besylate 10 Mg Tablet PO 03/15/25 11:46 10 mg ONCE ONE Administration Protocol Hydralazine HCl 50 mg 03/15/25 11:45 03/15/25 12:10 Hydralazine Hcl 50 Mg Tablet PO 03/15/25 11:46 50 mg ONCE ONE Administration Protocol Lisinopril 40 mg 03/15/25 11:45 03/15/25 12:10 Lisinopril 40 Mg Tablet PO 03/15/25 11:46 40 mg ONCE ONE Administration Protocol Meclizine HCl 25 mg 03/15/25 11:45 03/15/25 12:09 Meclizine Hcl 25 Mg Tablet PO 03/15/25 11:46 25 mg ONCE ONE Administration Medical Decision Making Medical Decision Making MDM Narrative: Patient is 64 years old presents today with having dizziness. Has a history of hypertension and dizziness in the past. Patient claims she takes a dizzy pale. She ran out of pale. We gave her a dose of meclizine here in the emergency department with good relief of symptoms. Blood pressure extreme claims that she did not take her medication we review her medication she is on amlodipine 10 mg daily she is also on chlorthalidone 25 mg which which I did not have. Patient also on hydralazine 100 mg t.i.d.. Also on lisinopril 40 mg daily. We gave her back her adenosine hydralazine and also amlodipine with good results blood pressure is about out 170/100. Patient is EKG showed a worrisome pattern but appears to be old. Patient's troponin was negative. White count is normal hemoglobin is 13 no signs of anemia. BUN and creatinine was normal. Patient's urine showed a question UTI. Will treat patient with antibiotics. No specific culture results was in the system. Will start patient on Keflex. Differential Diagnosis Differential Diagnoses: The differential diagnosis associated with the presentation includes Vertigo, urinary tract infection, hypertensive urgency hypertensive emergency Admission/Observation Consideration of admission/observation: Escalation of care including admission/observation considered Considered admission but blood pressure came down with medication. Lab Data MDM Lab Attestation statement: I reviewed the patient's lab results. 03/15/25 11:12 03/15/25 11:12 Labs: Lab Results 03/15/25 03/15/25 Range/Units 11:12 13:32 WBC 7.6 (4.8-10.8) X10*3/uL RBC 4.35 (4.20-5.50) X10*6/uL Hgb 13.0 (12.0-16.0) g/dl Hct 39.4 (37.0-47.0) % MCV 90.6 (80.0-98.0) fL MCH 29.9 (27.0-33.0) pg MCHC 33.0 (31.0-35.0) g/dl RDW 11.6 (11.0-16.0) % Plt Count 271 (160-400) X10*3/uL MPV 10.2 (9.4-12.3) fL Immature Gran % (Auto) 0.3 (0.0-0.4) % Neut % (Auto) 72.3 (45-73) % Lymph % (Auto) 20.0 (20-40) % [place] % (Auto) 5.7 (2-11) % Eos % (Auto) 0.9 (0-4) % Baso % (Auto) 0.8 (0-2) % Lymph # (Auto) 1.5 (1.2-4.9) X10*3/uL [place] # (Auto) 0.4 (0.1-1.2) X10*3/uL Eos # (Auto) 0.1 (0.0-0.4) X10*3/uL Baso # (Auto) 0.1 (0.0-0.2) X10*3/uL Abs Immat Gran (auto) 0.02 (0.00-0.03) X10*3/uL Absolute Neuts (auto) 5.5 (2.0-8.3) x10*3/uL Absolute Nucleated RBC 0.000 (0.0-0.012) X10*3/uL Nucleated RBC % (auto) 0.0 (0.0-0.2) /100WBC Sodium 142 (135-145) mmol/L Potassium 5.3 H (3.3-5.1) mmol/L Chloride 108 (96-108) mmol/L Carbon Dioxide 26 (22-29) mmol/L Anion Gap 13 (12-20) BUN 17 H (9-16) mg/dL Creatinine 0.83 (0.5-1.4) mg/dL Estim Creat Clear Calc 41.5 Estimated GFR > 60 Random Glucose 108 (60-115) mg/dL Calcium 9.5 (8.4-10.2) mg/dL Troponin I High Sens < 2.7 (<3.5-17.0) ng/L Urine Color Yellow Urine Appearance Clear Urine pH 6.0 (5.0-9.0) Ur Specific [place] 1.020 (1.005-1.025) Urine Protein Trace (Neg-Trace) mg/dL Urine Glucose (UA) Negative (Negative) mg/dL Urine Ketones Negative (Negative) mg/dL Urine Blood Small (1+) H (Negative) Urine Nitrite Negative (Negative) Ur Leukocyte Esterase Moderate (2+) H (Negative) Urine RBC 6-10 H (0-2) /HPF Urine WBC 21-50 H (0-5) /HPF Ur Squamous Epith Cells 0-2 (0-2) /HPF Urine Bacteria None Seen (None Seen) Hyaline Casts 0-2 (0-2) /LPF Independent Interpretation I performed an independent interpretation of an: EKG (My interpretation of patient's EKG showed a sinus pattern heart rate was 70 CO QRS QTC normal there is significant ST segment elevations question J-point noted in the anterior leads removed review patient's previous EKG there were essentially the same we repeated patient's EKG a few minutes later th) and CT Scan (My interpretation patient's CT head was grossly negative.) Radiology Impression Discussion of test interpretation with radiology: I have reviewed the radiologist's reading. External Record Review External record reviewed: Office record Chronic Conditions Patient?s care impacted by: Diabetes and Hypertension Social Determinants Patient?s care significantly limited by Social Determinants of Health including: Problems related to primary support group Discharge Plan Discharge Clinical Impression: Vertigo Patient Disposition: Home, Self-Care Instructions: Dizziness (ED), Hypertension (ED) Additional Instructions: Please take your blood pressure medications. Your blood pressure was extremely high earlier which may have contributed to your dizziness. Prescriptions: No Action zweyngityigk-nere-sagkx acid 18-400 mg-mcg tablet 1 tab PO DAILY 90 Days Qty: 90 1RF Ensure Liquid 1 ea PO DAILY 24 Days Qty: 5688 6RF potassium chloride 20 mEq tablet extended release 20 meq PO BID 10 Days Qty: 20 0RF acetaminophen [Tylenol Extra Strength] 500 mg tablet 1,000 mg PO QID PRN (Reason: fever or pain) 30 Days Qty: 120 1RF amlodipine 10 mg tablet 10 mg PO DAILY 90 Days Qty: 90 3RF albuterol sulfate [Ventolin HFA] 90 mcg/actuation HFA aerosol inhaler 2 puff inhalation Q6H PRN (Reason: shortness of breath or wheezing) 30 Days Qty: 8 1RF cetirizine 10 mg tablet 10 mg PO DAILY Qty: 30 1RF lisinopril 40 mg tablet 40 mg PO DAILY 90 Days Qty: 90 3RF fluoxetine 20 mg capsule 20 mg PO DAILY 90 Days Qty: 90 1RF cholecalciferol (vitamin D3) 50 mcg (2,000 unit) capsule 50 mcg PO DAILY Qty: 30 5RF chlorthalidone 25 mg tablet 25 mg PO DAILY 90 Days Qty: 90 1RF aspirin 81 mg tablet,delayed release (/EC) 81 mg PO DAILY 90 Days Qty: 90 1RF buspirone 10 mg tablet 10 mg PO BID 90 Days Qty: 180 0RF atorvastatin 40 mg tablet 40 mg PO DAILY 90 Days Qty: 90 3RF hydralazine 100 mg tablet 100 mg PO TID 90 Days Qty: 270 1RF Referrals: Vinita Sykes MD [Primary Care Provider, Internal Medicine] - 03/17/25 Print Language: Paraguayan
[2025-03-15 12:09] VITALS: BP 196/102; PULSE 67
[2025-03-15 13:31] VITALS: BP 177/101; PULSE 73; RESP 16
[2025-03-15 13:38] LABS: Appearance Urine Clear; Glucose Urine UA Negative (Negative); PH 6.0 (5.0-9.0); Specific Gravity - Urine 1.020 (1.005-1.025); UMIC TRIGGER UACC YES
[2025-03-15 13:43] LABS: UACC Culture Trigger YES
--- NOTE | 2025-03-15 14:59 | MHC.EDTECH ---
pt ambulated with no complaints of dizziness, weakness, sob, or any other complaints. RN made aware
[2025-03-15 15:07] VITALS: BP 171/96; PULSE 90; RESP 16; TEMP 37; O2SAT 97
== END 2025-03-15 15:11 | disposition home or self-care (01) ==
PROVIDERS: Emergency Provider Emergency Medicine Emergency Medical Services; PCP Internal Medicine
DX: R42 Dizziness and giddiness (principal); I10 Essential (primary) hypertension; Z79.82 Long term (current) use of aspirin; E78.00 Pure hypercholesterolemia, unspecified; J45.909 Unspecified asthma, uncomplicated
CPT/HCPCS: 36415; 70450; 80048; 81001; 84484; 85025; 87086; 93005; 99284

== ENCOUNTER → 2025-03-15 11:15 | Outpatient (BNV) | payer OTHER, SELFPAY | PROVIDERS: Emergency Provider Emergency Medicine Emergency Medical Services; PCP Internal Medicine; Visit Provider Internal Medicine | DX: I51.7 Cardiomegaly (principal) | CPT/HCPCS: 93010 ==

== ENCOUNTER → 2025-03-15 11:48 | Outpatient (BNV) | payer OTHER, SELFPAY | PROVIDERS: Emergency Provider Emergency Medicine Emergency Medical Services; PCP Internal Medicine; Visit Provider Radiology Diagnostic Radiology | DX: R42 Dizziness and giddiness (principal) | CPT/HCPCS: 70450 ==

== ENCOUNTER 2025-03-15 16:02 | Emergency (ER) | payer OTHER, SELFPAY ==
[2025-03-15] VITALS (7 sets, daily range): BP systolic 142–165; BP diastolic 75–83; PULSE 66–89; RESP 15–18; TEMP 36.4–37.3; O2SAT 95–97; BMI 23.5
--- NOTE | 2025-03-15 | ECG_ITS ---
Test Reason : DIZZINESS Blood Pressure : */* mmHG Vent. Rate : 72 BPM Atrial Rate : 72 BPM P-R Int : 144 ms QRS Dur : 76 ms QT Int : 392 ms P-R-T Axes : 46 38 141 degrees QTcB Int : 429 ms Normal sinus rhythm Left ventricular hypertrophy with repolarization abnormality ( R in aVL , Sokolow-Morrison , Romhilt-Waters ) Abnormal ECG When compared with ECG of 15-Mar-2025 11:05, No significant change was found Referred By: Generic ED Physician Electronically Signed By: JAYCE RAMIREZ
[2025-03-15 16:28] LABS: MANUAL DIFF FLAG NO
[2025-03-15 16:31] LABS: Hematocrit 40.3 % (37.0-47.0); Hemoglobin 13.3 g/dl (12.0-16.0); Imm Gran Abs Auto 0.01 X10*3/uL (0.00-0.03); Imm Gran Pct Auto 0.1 % (0.0-0.4); Lymphocytes Absolute Auto 2.4 X10*3/uL (1.2-4.9); Mean Corpuscular HGB Conc 33.0 g/dl (31.0-35.0); Mean Corpuscular Hemoglobin 29.8 pg (27.0-33.0); Mean Corpuscular Volume 90.2 fL (80.0-98.0); NRBC Abs Auto 0.000 X10*3/uL (0.0-0.012); NRBC Pct Auto 0.0 /100WBC (0.0-0.2); Platelet Count 275 X10*3/uL (160-400); Red Blood Count 4.47 X10*6/uL (4.20-5.50); White Blood Count 6.9 X10*3/uL (4.8-10.8)
[2025-03-15 16:46] LABS: Alanine Aminotransferase 12 U/L (0-31); Albumin Level 4.3 g/dL (3.5-5.0); Alkaline Phosphatase 85 U/L (39-117); Anion Gap 13 (12-20); Aspartate Amino Transferase 27 U/L (5-31); Blood Urea Nitrogen 15 mg/dL (9-16); Calcium 9.3 mg/dL (8.4-10.2); Carbon Dioxide 26 mmol/L (22-29); Chloride 108 mmol/L (96-108); Creatinine Clr Calc Pharmacy 44.5; Estimated Glomerular Filt Rate 58; Magnesium 2.1 mg/dL (1.6-2.6); Potassium 4.0 mmol/L (3.3-5.1); Sodium 143 mmol/L (135-145); Total Protein 7.5 g/dL (6.5-8.0)
[2025-03-15 16:50] LABS: Troponin-I High Sensitivity < 2.7 ng/L (<3.5-17.0)
--- NOTE | 2025-03-15 20:15 | PC.NURSE ---
pt ambulated to the restroom w/ a strong/steady gait. denies any dizziness/lightheadedness. 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 pt reports sx remain subsided at this time. pt waiting for provider. plan of care ongoing. call de luna placed within reach.
--- NOTE | 2025-03-15 21:27 | ED_ITS ---
HPI - Dizziness General Chief Complaint: Dizziness Stated Complaint: Vertigo Time Seen by Provider: 03/15/25 21:26 Source: patient Mode of arrival: ambulatory Limitations: language barrier ([employer] services utilized) History of Present Illness ED Provider: Brandon BEGRERON HPI Narrative: The patient is a 64-year-old female with a history of vertigo, hypertension, hyperlipidemia, anxiety, depression, and osteoporosis presenting to the ED for re-evaluation of lightheadedness/dizziness. The patient was seen in the ED earlier today for the same complaint, reporting increased dizziness compared to baseline since Friday, also reporting being out of her meclizine. Patient was given meclizine with improvement in symptoms, patient was also found to have a UTI, was discharged with meclizine and cephalexin. The patient reportedly was leaving the ED when she developed recurrence of symptoms and lowered herself to the ground. The patient denies associated focal neurological deficit, headache, chest pain, shortness of breath, or other acute somatic complaint. The patient describes dizziness as a lightheadedness, denies associated vomiting or spinning sensation. At time of this provider's interviewed the patient reports all symptoms have resolved and she feels back to baseline, is without complaint. Related Data Previous Rx's ?Medication ?Instructions ?Recorded multivitamin-ferrous 1 tab PO DAILY 90 days #90 t abs 09/02/22 fumarate-folic acid 18 mg-400 mcg tablet food supplemt, lactose-reduced 1 ea PO DAILY 24 days # 5,688 mL 03/03/23 (Ensure oral liquid) potassium chloride 20 mEq 20 meq PO BID 10 days #20 ta bs 12/02/23 tablet,extended release acetaminophen 500 mg tablet 1,000 mg (2 x 500 mg) PO Q ID PRN 02/10/24 (Tylenol Extra Strength) fever or pain 30 days #120 t abs aspirin 81 mg tablet,delayed 81 mg PO DAILY 90 days #9 0 tabs 04/07/24 release atorvastatin 40 mg tablet 40 mg PO DAILY 90 days #90 t abs 04/07/24 buspirone 10 mg tablet 10 mg PO BID 90 days #180 ta bs 04/07/24 chlorthalidone 25 mg tablet 25 mg PO DAILY 90 days #90 tabs 04/07/24 cholecalciferol (vitamin D3) 50 50 mcg PO DAILY #30 ca ps 04/07/24 mcg (2,000 unit) capsule fluoxetine 20 mg capsule 20 mg PO DAILY 90 days #90 c aps 04/07/24 hydralazine 100 mg tablet 100 mg PO TID 90 days #270 t abs 04/07/24 lisinopril 40 mg tablet 40 mg PO DAILY 90 days #90 t abs 04/07/24 Ventolin HFA 90 mcg/actuation 2 puff inhalation Q6H OK N 11/24/24 aerosol inhaler (albuterol sulfate) shortness of breat h or wheezing 30 days #8 grams amlodipine 10 mg tablet 10 mg PO DAILY 90 days #90 t abs 11/24/24 cetirizine 10 mg tablet 10 mg PO DAILY #30 tabs 11/19 04/14 cephalexin 500 mg capsule 500 mg PO TID 7 days #21 cap s 03/15/25 meclizine 25 mg tablet 25 mg PO TID PRN dizziness # 14 tabs 03/15/25 Allergies Allergy/AdvReac Type Severity Reaction Status Date / Time No Known Allergies (No Known Allergy Verified 03/15/25 16:25 Allergies*) Review of Systems 2 Review of Systems: Yes all other systems are reviewed and are negative [facility] Past Medical History Medical History Malnutrition URI (upper respiratory infection) Pure hypercholesterolemia Essential hypertension Asthma Surgical History Hx of tubal ligation Family History Family History Mother Essential hypertension Pure hypercholesterolemia Father No problems noted. Social History Social History Household Members Other:: daughter Housing: Apartment Alcohol intake: former Patient Tobacco Use Status: Never used Tobacco Smoked in Last 30 Days: No e-Cigarette/Vaping Use: Never Used Second Hand Smoke Exposure: No Use of substances other than those prescribed or required for medical reasons: No Advance Directives: No Advance Directives Information Provided: No Do you have a plan to hurt others: No Plan Patient : No service: No Current occupational status: disabled Sexual orientation: Straight/Heterosexual Gender identity: Female Cognitive needs: No Hearing needs: No Vision needs: Yes Physical Exam 2 Vital Signs: Vital Signs: Last Vital Signs Temp 98.3 F 03/15/25 22:12 Pulse 81 03/15/25 22:12 Resp 18 03/15/25 22:12 BP 165/82 H 03/15/25 22:12 Pulse Ox 96 03/15/25 22:12 O2 Del Method Room Air 03/15/25 22:12 BMI result Body Mass Index 23.5 CONSTITUTIONAL: The patient appears non-toxic, well nourished and in no acute distress. Vital signs as documented. HEAD: Atraumatic, normocephalic. EYES: EOMs intact, pupils equal round and reactive to light and accommodation, conjunctiva clear, no exudate. ENT: Nares patent, no discharge. Airway patent, no audible stridor, visible mucosa is pink and moist without noted lesions. NECK: Trachea is midline, no obvious masses or gross abnormalities. CHEST: Symmetric movement, normal appearance. LUNGS: LS present and CTAB, no w/r/r. Non-labored work of breathing. CARDIAC: Regular Rhythm, S1/S2 appreciated, no murmurs, rubs or gallops. ABDOMEN: Abdomen soft and non-tender x4 quadrants, no palpable masses or organomegaly. : Deferred. EXTREMITIES: Normal tone, moves all extremities spontaneously without reported pain. No obvious acute injury or deformity noted. NEURO: Alert and oriented x3, CN II-XII intact. Cerebellar Functioning intact. Strength 5/5 x4 extremities, no sensory deficits. Speech clear and appropriate. PSYCH: normal affect, appropriate eye contact, fluid speech, with appropriate response to questioning. No reported suicidality or homicidality. SKIN: Warm, dry, color appropriate, normal turgor. No rashes noted. NIH Stroke Scale Time: 22:05 Level of Consciousness: Alert Level of Consciousness Questions: Answers both questions correctly Level of Consciousness Commands: Performs both tasks correctly Best Gaze: Normal Visual: No visual loss Facial Palsy: Normal Motor Arm (Right): No drift Motor Arm (Left): No drift Motor Leg (Right): No drift Motor Leg (Left): No drift Limb Ataxia: Absent Sensory: Normal Best Language: No aphasia Dysarthia: Normal Extinction and Inattention: No abnormality Score: 0 Medical Decision Making Medical Decision Making MDM Narrative: 10:10 PM 03/15/2025 (Saad BERGERON): The patient is a 64-year-old female presenting to the ED for re-evaluation after she suffered a near syncopal episode, lowering herself to the ground as she was exiting the ED from an earlier visit. The patient was seen earlier today for evaluation of 2 days of worsening dizziness compared to her baseline vertigo. The patient was diagnosed with a UTI during her initial visit. The patient also reported running out of meclizine, was treated with meclizine at which time she reported resolution of symptoms, and was discharged, however patient then suffered a near syncopal episode while walking of the ED. At time of this provider's interview the patient reports all symptoms have resolved and she feels back at baseline. The patient's exam is reassuring, no focal neurological deficit, no other acute findings. NIH stroke scale is 0. Patient is able to ambulate with a steady gait. Patient's repeat laboratory evaluation is reassuring, no leukocytosis, anemia, electrolyte abnormality, IGOR, or LFT abnormality. The patient's troponin is negative, EKG is nonischemic. The patient's worsening dizziness over the past 2 days may have been a result of her UTI as well as lack of meclizine. The patient's dizziness episode here in the ED may have been further complicated by administration of her antihypertensive medication while in the ED as the patient had not taken it prior to presenting to the ED. At this time, given the patient's reassuring vital signs, repeat workup, exam, and resolution of symptoms, there was no indication for CT imaging, admission, or additional observation and we will discharge with outpatient follow up. Patient understands to take meclizine for additional dizziness and take cephalexin as prescribed until finished. Patient has been educated on reasons to return to the ED for re-evaluation. Admission/Observation Consideration of admission/observation: Escalation of care including admission/observation considered Lab Data MDM Lab Attestation statement: I reviewed the patient's lab results. 03/15/25 16:23 03/15/25 16:23 Labs: Lab Results 03/15/25 Range/Units 16:23 WBC 6.9 (4.8-10.8) X10*3/uL RBC 4.47 (4.20-5.50) X10*6/uL Hgb 13.3 (12.0-16.0) g/dl Hct 40.3 (37.0-47.0) % MCV 90.2 (80.0-98.0) fL MCH 29.8 (27.0-33.0) pg MCHC 33.0 (31.0-35.0) g/dl RDW 11.6 (11.0-16.0) % Plt Count 275 (160-400) X10*3/uL MPV 10.3 (9.4-12.3) fL Immature Gran % (Auto) 0.1 (0.0-0.4) % Neut % (Auto) 57.3 (45-73) % Lymph % (Auto) 34.8 (20-40) % [place] % (Auto) 5.8 (2-11) % Eos % (Auto) 1.0 (0-4) % Baso % (Auto) 1.0 (0-2) % Lymph # (Auto) 2.4 (1.2-4.9) X10*3/uL [place] # (Auto) 0.4 (0.1-1.2) X10*3/uL Eos # (Auto) 0.1 (0.0-0.4) X10*3/uL Baso # (Auto) 0.1 (0.0-0.2) X10*3/uL Abs Immat Gran (auto) 0.01 (0.00-0.03) X10*3/uL Absolute Neuts (auto) 4.0 (2.0-8.3) x10*3/uL Absolute Nucleated RBC 0.000 (0.0-0.012) X10*3/uL Nucleated RBC % (auto) 0.0 (0.0-0.2) /100WBC Sodium 143 (135-145) mmol/L Potassium 4.0 D (3.3-5.1) mmol/L Chloride 108 (96-108) mmol/L Carbon Dioxide 26 (22-29) mmol/L Anion Gap 13 (12-20) BUN 15 (9-16) mg/dL Creatinine 0.97 (0.5-1.4) mg/dL Estim Creat Clear Calc 44.5 Estimated GFR 58 Random Glucose 154 H (60-115) mg/dL Calcium 9.3 (8.4-10.2) mg/dL Magnesium 2.1 (1.6-2.6) mg/dL Total Bilirubin 0.3 (0.0-1.0) mg/dL AST 27 (5-31) U/L ALT 12 (0-31) U/L Alkaline Phosphatase 85 (39-117) U/L Troponin I High Sens < 2.7 (<3.5-17.0) ng/L Total Protein 7.5 (6.5-8.0) g/dL Albumin 4.3 (3.5-5.0) g/dL Independent Interpretation I performed an independent interpretation of an: EKG (EKG shows sinus rhythm with a rate of 72, with evidence of LVH, no evidence of acute ischemia, no ST elevation, no ectopy. QTC 429. Compared to previous earlier today there was no significant morphology change. ) External Record Review External record reviewed: Outpatient record Tests considered The following testing was considered but not selected: CT Head Chronic Conditions Patient?s care impacted by: Hypertension Discharge Plan Discharge Clinical Impression: Dizziness UTI (urinary tract infection) Qualifiers: Urinary tract infection type: acute cystitis Hematuria presence: without hematuria Qualified Code(s): N30.00 - Acute cystitis without hematuria Patient Disposition: Home, Self-Care Instructions: Dizziness (ED), Urinary Tract Infection in Older Adults (ED) Additional Instructions: Tab por elegir el [facility]art[facility] del [facility] M?dico Hardy para thomas atenci?n m?dica hoy. Hoy fue reevaluado en Urgencias despu?s de que lexi mareos le provocaran un episodio de tra desmayo al salir de Urgencias en thomas visita anterior. Afortunadamente, la repetici?n de las pruebas de laboratorio, el electrocardiograma y el examen fueron tranquilizadores. En nika momento, no hay indicaci?n de ingreso hospitalario ni de observaci?n continua en Urgencias, y es seguro darle de ayo. Lexi mareos/v?rtigo cr?nicos podr?an eleuterio empeorado hoy debido a lucy infecci?n del tracto urinario diagnosticada yue thomas visita inicial. Bieber los antibi?ticos recetados hasta completarlos. Bieber meclizina seg?n sea necesario si presenta mareos adicionales. Consulte con thomas m?dico de cabecera para lucy reevaluaci?n, un manejo adicional de lexi s?ntomas y atenci?n preventiva continua. Si no tiene un m?dico de cabecera, llame a [facility] al [phone] para asignarle joel nuevo. Mientras espera a que le asignen un nuevo m?dico de cabecera, puede llamar a nuestra Cl?jose de Atenci?n sin Melanie Previa al [phone] para necesidades que no yunior de emergencia. Por favor, regrese a urgencias si presenta un cambio repentino o grave en lexi s?ntomas, fiebre superior a 38 ?C que no mejora con Tylenol o ibuprofeno, v?mitos recurrentes o cualquier otro s?ntoma o inquietud nuevo o que empeore. Thank you for choosing [facility]'s Emergency Department for your care today. You were re-evaluated in the ED today after your dizziness caused a near fainting episode while leaving the ED from your previous visit. Thankfully your repeat laboratory evaluation, EKG, and exam were reassuring At this time there is no indication for admission to the hospital or continued ED observation, and it is safe to discharge you home. Your chronic dizziness/vertigo may have been made worse today by a urinary tract infection that was diagnosed during your initial visit. Please take the antibiotics prescribed until they are finished. Please take meclizine as needed for additional dizziness. Please follow up with your primary care physician for re-evaluation, additional management of your symptoms, and continued preventative care. If you do not have a primary care physician, please call the [facility] at [phone] to establish a new primary care physician. While waiting to establish your new primary care physician, you can call our [facility] at [phone] for non-emergency needs. Please return to the emergency department if you develop a severe or sudden change in your symptoms, a fever over 100.4 that does not improve with Tylenol or Ibuprofen, recurrent vomiting, or any other new or worsening symptoms or concerns. Prescriptions: No Action wjnmrftmropf-pulr-brabp acid 18-400 mg-mcg tablet 1 tab PO DAILY 90 Days Qty: 90 1RF Ensure Liquid 1 ea PO DAILY 24 Days Qty: 5688 6RF potassium chloride 20 mEq tablet extended release 20 meq PO BID 10 Days Qty: 20 0RF acetaminophen [Tylenol Extra Strength] 500 mg tablet 1,000 mg PO QID PRN (Reason: fever or pain) 30 Days Qty: 120 1RF amlodipine 10 mg tablet 10 mg PO DAILY 90 Days Qty: 90 3RF albuterol sulfate [Ventolin HFA] 90 mcg/actuation HFA aerosol inhaler 2 puff inhalation Q6H PRN (Reason: shortness of breath or wheezing) 30 Days Qty: 8 1RF cetirizine 10 mg tablet 10 mg PO DAILY Qty: 30 1RF meclizine 25 mg tablet 25 mg PO TID PRN (Reason: dizziness) Qty: 14 0RF cephalexin 500 mg capsule 500 mg PO TID 7 Days Qty: 21 0RF lisinopril 40 mg tablet 40 mg PO DAILY 90 Days Qty: 90 3RF fluoxetine 20 mg capsule 20 mg PO DAILY 90 Days Qty: 90 1RF cholecalciferol (vitamin D3) 50 mcg (2,000 unit) capsule 50 mcg PO DAILY Qty: 30 5RF chlorthalidone 25 mg tablet 25 mg PO DAILY 90 Days Qty: 90 1RF aspirin 81 mg tablet,delayed release (DR/EC) 81 mg PO DAILY 90 Days Qty: 90 1RF buspirone 10 mg tablet 10 mg PO BID 90 Days Qty: 180 0RF atorvastatin 40 mg tablet 40 mg PO DAILY 90 Days Qty: 90 3RF hydralazine 100 mg tablet 100 mg PO TID 90 Days Qty: 270 1RF Referrals: Physician,Unknown J [Primary Care Provider, Medical] Clinical Impression: UTI (urinary tract infection); Dizziness Interventions: ED Discharge Assessment Last Done: 03/15/25 22:12 Discharge Date/Time: 03/15/25 22:14 Print Language: Gambian
== END 2025-03-15 22:14 | disposition home or self-care (01) ==
PROVIDERS: Emergency Provider Emergency Medicine
DX: R42 Dizziness and giddiness (principal); N39.0 Urinary tract infection, site not specified; M81.0 Age-related osteoporosis without current pathological fracture; I10 Essential (primary) hypertension; Z79.899 Other long term (current) drug therapy; Z87.09 Personal history of other diseases of the respiratory system
CPT/HCPCS: 36415; 80053; 83735; 84484; 85025; 93005; 99283; 99285

== ENCOUNTER 2025-03-28 15:19 | Outpatient (AMB) | payer OTHER, SELFPAY ==
--- NOTE | 2025-03-28 15:31 | MHC.PC.OV ---
Vital Signs 03/28/25 15:33 Height 4 ft 11 in Weight 105 lb 4 oz BMI 21.3 BP 140/70 H Blood Pressure Location Lt brachial Position Sitting Pulse 81 Pulse Source Pulse Oximeter Temp 97.5 F Temp Source Temporal Artery Scan Pulse Oximetry (%) 94 Oxygen Delivery Method Room Air Intake Visit Reasons: F/u Intake Note: Patient is here to follow up on HTN, Hypercholesterolemia. 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 Manufacturing Professional Required: No Security Risk Analyst: Not Required per policy Accompanied by: Self / Same As Patient Allergies No Known Allergies (No Known Allergies*) Allergy (Verified 03/28/25 15:56) Medication List - Last Reconciled 03/28/25 by Vinita Ortiz MD acetaminophen (Tylenol Extra Strength) 1,000 mg (2 x 500 mg) PO QID PRN 30 days amlodipine 10 mg PO DAILY 90 days aspirin 81 mg PO DAILY 90 days atorvastatin 40 mg PO DAILY 90 days buspirone 10 mg PO BID 90 days cephalexin 500 mg PO TID 7 days cetirizine 10 mg PO DAILY chlorthalidone 25 mg PO DAILY 90 days cholecalciferol (vitamin D3) 50 mcg PO DAILY fluoxetine 20 mg PO DAILY 90 days food supplemt, lactose-reduced (Ensure oral liquid) 1 ea PO DAILY 24 days hydralazine 100 mg PO TID 90 days lisinopril 40 mg PO DAILY 90 days meclizine 25 mg PO TID PRN mcumjfrdfihn-dgkp-rctfy acid 18-400 mg-mcg 1 tab PO DAILY 90 days potassium chloride ER 20 mEq PO BID 10 days Ventolin HFA 90 mcg/actuation (albuterol sulfate) 2 puffs inhalation Q6H PRN 30 days NS Tobacco use date assessed: 03/28/25 Dental Screening Dental Screen Date: 03/28/25 Did you have a dental visit in the last 12 months?: Yes Did you have a dental problem in the last 6 months where you did not have access to dental care?: No Was dental information given to patient?: Patient has dentist HPI HPI Comments History of Present Illness Details The patient is a 64-year-old female presenting for a wellness visit and management of chronic conditions. She has a history of hypertension, which has been improving with the use of amlodipine. Her blood pressure management appears stable with current medication. The patient also has a diagnosis of major depressive disorder, currently mild with a PHQ-9 score of 3. She is on fluoxetine and buspirone for anxiety management. Osteoporosis was identified in a DEXA scan conducted in 2022, and she is under endocrinology care for this condition. In terms of preventative care, she has not had a colonoscopy and was referred through open access. Her last mammogram was over a year ago, and her last Pap smear in 2023 was normal. [facility] Medical History Malnutrition URI (upper respiratory infection) Pure hypercholesterolemia Essential hypertension Asthma Surgical History Hx of tubal ligation Family History Mother Essential hypertension Pure hypercholesterolemia Father No problems noted. Social History Household Members Other:: daughter Housing: Apartment Alcohol intake: former Patient Tobacco Use Status: Never used Tobacco e-Cigarette/Vaping Use: Never Used Second Hand Smoke Exposure: No service: No Current occupational status: disabled Sexual orientation: Straight/Heterosexual Gender identity: Female Cognitive needs: No Hearing needs: No Vision needs: Yes Questionnaire PHQ-9 Over the last 2 weeks, how often have you been bothered by any of the following problems? 1. Little interest or pleasure in doing things: not at all 2. Feeling down, depressed, or hopeless: not at all 3. Trouble falling or staying asleep, or sleeping too much: not at all 4. Feeling tired or having little energy: not at all 5. Poor appetite or overeating: nearly every day 6. Feeling bad about yourself - or that you are a failure or have let yourself or your family down: not at all 7. Trouble concentrating on things, such as reading the newspaper or watching television: not at all 8. Moving or speaking so slowly that other people could have noticed. Or the opposite - being so fidgety or restless that you have been moving around a lot more than usual: not at all 9. Thoughts that you would be better off or of hurting yourself in some way: not at all Total score: 3 Depression Screening Interpretation: Positive Depression Screening Follow-up: Existing condition, In treatment and Follow-up Visit Requested Depression Screening Done: Yes 03996 - PHQ-9 Billing: Yes Source: Developed by Drs. Kamari Toledo, Preston Wei and colleagues, with an educational rhoda from [employer]. Thrive Questionnaire Date Thrive assessed: 03/28/25 I am a: Patient What is your living situation today?: I choose not to answer this question Within the past 12 months, did the food you bought not last and you didn't have the money to get more?: I choose not to answer this question Within the past 12 months, did you worry whether your food would run out before you got money to buy more?: I choose not to answer this question Do you have trouble paying for medicines?: No Do you have trouble getting transportation to medical appointments?: No Do you have trouble paying your heating and electricity bill?: No Do you have trouble taking care of your child, family member or friend?: No Do you have trouble with day-to-day activities such as bathing, preparing meals, shopping, managing finances, etc.?: No Are you currently unemployed and looking for a job?: No Are you interested in more education?: No Please select the resources that you would like help with: Transportation Currently or been in a relationship where the following occur: I choose not to answer THRIVE Score: 0 AUDIT C Alcohol Use Questionnaire (AUDIT-C) 1. How often do you have a drink containing alcohol?: Never Total Score: 0 Score Reviewed/Action Taken: No NAM-7 AMB Questionnaire NAM-7 Date NAM - 7 assessed: 03/28/25 Feeling nervous, anxious, or on edge: 0 = Not at all Not being able to stop or control worryin = Not at all Worrying too much about different things: 0 = Not at all Trouble relaxin = Not at all Being so restless that it is hard to sit still: 0 = Not at all Becoming easily annoyed or irritable: 0 = Not at all Feeling afraid as if something awful might happen: 0 = Not at all Total NAM-7 score (0-4 normal; 5-9 mild; 10-14 moderate; 15-21 severe): 0 Source: Developed by Edilia Alcaraz Herson, Preston Raymond and colleagues, with an educational rhoda from [employer]. NAM-7 Assessment Billing NAM-7 Assessment Tool: NAM-7 Assessment 79604 Review of Systems Const All systems reviewed & are unremarkable except as noted in HPI and below Card Denies chest pain at rest, Denies chest pain with activity, Denies edema, Denies irregular heart rhythm, Denies claudication, Denies dyspnea, Denies dyspnea on exertion, Denies orthopnea, Denies paroxysmal nocturnal dyspnea and Denies slow heart rate Resp Denies cough, Denies dyspnea and Denies dyspnea on exertion GI Denies abdominal pain, Denies change in bowel habits, Denies excessive flatus, Denies nausea and Denies vomiting Physical exam (Primary Care) Vital Signs: Last Vital Signs Temp 97.5 F 03/28/25 15:33 Pulse 81 03/28/25 15:33 BP 140/70 H 03/28/25 15:33 Pulse Ox 94 03/28/25 15:33 Oxygen Delivery Method Room Air 03/28/25 15:33 BMI result Body Mass Index 21.3 Tobacco/Smoking Status: Tobacco use Status Tobacco use date assessed 03/28/25 03/28/25 15:35 Patient Tobacco Use Status Never used Tobacco 03/28/25 15:31 e-Cigarette/Vaping Use Never Used 03/28/25 15:31 PHQ-9: PHQ-9 Score PHQ-9: Total score 3 03/28/25 15:35 Depression Screening Interpretation: Positive Depression Screening Follow-up: Existing condition, In treatment and Follow-up Visit Requested Thrive Assessment: Date of Thrive Assessment Date Thrive assessed 03/28/25 03/28/25 15:35 Currently or been in a relationship where the following occur: I choose not to answer [facility] Head: Yes normal to inspection, Yes normocephalic and Yes atraumatic Ears: external ears normal Eyes General: appearance normal, both eyes and all related structures Eyelids: Yes eyelids normal Conjunctivae: conjunctivae normal Neck Neck: Yes normal visual inspection and Yes supple Resp Effort & Inspection: normal respiratory effort Auscultation: clear to auscultation bilaterally Cardio Jugular venous distension: no JVD Rate: regular rate Rhythm: regular rhythm Heart sounds: S1 normal heart sound present and S2 normal heart sound present GI Inspection: Yes normal to inspection Palpation (GI): Soft to palpation and nontender Auscultation: normal bowel sounds Skin General skin exam: no rashes or lesions noted Neuro General: no focal motor deficits Extrem General: Yes full ROM Psych Appearance: grossly normal Coding Level of Care Code Est Pt Prev Care 40-64y(18495) Diagnoses Physical exam Z00.00 Mild major depression F32.0 Additional Codes PHQ-9 - 81875 - PHQ-9 Billing: Yes ([id number]) NAM-7 Assessment Billing - NAM-7 Assessment Tool: NAM-7 Assessment 41170 ([id number]) Time Spent (min) 30 Assessment & Plan Assessment & Plan (1) Physical exam: Code(s): Z00.00 - Encounter for general adult medical examination without abnormal findings Category: Medical (2) Mild major depression: Code(s): F32.0 - Major depressive disorder, single episode, mild Category: Medical Plan Plan 1. Encounter for general adult medical examination without abnormal findings Z00.00 Preventative care measures include a referral for colonoscopy, overdue mammogram, and a normal Pap smear in 2023. 2. Major depressive disorder, single episode, unspecified F32.9 The patient is on fluoxetine for major depressive disorder, which is currently mild with a PHQ-9 score of 3. Orders: Orders Comprehensive [place]. Panel Fast Today Z00.00 - Encounter for general adult medical examination without abnormal findings XR DEXA axial skeleton Today Z78.0 - Asymptomatic menopausal state Lipid Panel Today E78.5 - Hyperlipidemia, unspecified MM tomosynthesis screening BI Today Z12.31 - Encounter for screening mammogram for malignant neoplasm of breast Referrals Open Access Screening Colonoscopy Referral Z12.12 - Encounter for screening for malignant neoplasm of rectum
[2025-03-28 15:33] VITALS: BP 140/70; PULSE 81; TEMP 36.4; O2SAT 94; BMI 21.3
--- OUTSIDE RECORDS SUMMARY | 2025-03-28 18:25 | XMS_ITS | Clinical Summary ---
Author Organization [employer] Address [address] [place] [address] [address] [place] [address] Care Team Providers Care Physical Therapy Teacher Name Role Phone Unavailable Primary Care Provider [...] COVID-19 Vaccine (1 - 2023-2 5 season) 2025 Influenza Vaccine (#1) 2025 RSV Patients and [...]
== END 2025-03-28 16:09 | disposition home or self-care (01) ==
PROVIDERS: PCP Internal Medicine; Visit Provider Internal Medicine
DX: Z00.00 Encounter for general adult medical examination without abnormal findings (principal); F32.0 Major depressive disorder, single episode, mild

== ENCOUNTER → 2025-03-28 15:19 | Outpatient (BNVA) | payer OTHER, SELFPAY | PROVIDERS: PCP Internal Medicine; Visit Provider Internal Medicine | DX: Z00.00 Encounter for general adult medical examination without abnormal findings (principal); M81.0 Age-related osteoporosis without current pathological fracture; I10 Essential (primary) hypertension; E78.00 Pure hypercholesterolemia, unspecified; F32.0 Major depressive disorder, single episode, mild | CPT/HCPCS: 96127; 99396 ==